=== PATIENT | female | born 1950 | race Caucasian/White ===

== ENCOUNTER 2020-05-26 03:54 | Inpatient (IN) | payer MEDICARE, OTHER ==
[2020-05-26] MEDS ORDERED: Vancomycin 1 GM/200 ML BAG ONE (05:09)
[2020-05-26 05:47] LABS: Actual Bicarbonate (HCO3a) 26.2 mEq/L (22-28); Analyzer IN Cardio ER; Base Excess (BEa) -0.1 mEq/L (-2.0 to +3.0); CO2 Tension 52.7 mmHg (35.0-45.0); Calcium, Ionized (arterial) 1.19 mmol/L (1.12-1.30); Carboxyhemoglobin (COHb) 0.5 gm% (0.0-3.0); Hemoglobin (Hb) 12.2 g/dL (12.0-16.0); O2 Tension (PaO2), arterial 73.7 mmHg (> 70.0); Potassium - ABG Lab 4.14 mmol/L (3.70-5.30); Puncture Site LBR; pH, Arterial 7.32 (7.35-7.45)
[2020-05-26 05:48] LABS: ALV-art Gradient 288.225 (0-20)
[2020-05-26 06:07] LABS: SARS-CoV-2 NAA Rapid Test Not Detected (NotDetected)
[2020-05-26 06:16] LABS: Troponin I 0.055 ng/mL (< 0.028)
--- NOTE | 2020-05-26 06:41 | PDOC.EVN ---
Event Note - Event Note Event Note: [id number] HP
[2020-05-26 07:37] LABS: Troponin I 0.071 ng/mL (< 0.028)
[2020-05-26] MEDS ORDERED: Enoxaparin Sodium 40 MG/0.4 ML SYRINGE SC SCH (09:00)
[2020-05-26] MEDS ORDERED: Dextrose 5% in Water 1,000 ML IV PRN (09:38)
[2020-05-26] MEDS ORDERED: Dextrose 50% Abboject 50 ML SYRINGE SLOW IVP PRN (09:38)
[2020-05-26] MEDS: Furosemide 40 MG/4 ML VIAL SLOW IVP SCH ×2 (10:01→16:04)
--- NOTE | 2020-05-26 10:17 | RAD ---
EXAM: Single view of the chest HISTORY: Respiratory failure COMPARISON: 05/26/2020 at 2:31 AM FINDINGS: Single view of the chest shows an enlarged but stable cardiomediastinal silhouette. The pa cemaker is unchanged in position. There is airspace opacity in the majority of the left lung consistent with left-sided pneumonia. No acute osseous abnormality. IMPRESSION: Left sided pneumonia
[2020-05-26 10:27] LABS: Troponin I 0.069 ng/mL (< 0.028)
--- NOTE | 2020-05-26 10:29 | HP ---
PLEASE DISREGARD THIS H&P, PATIENT APPARENTLY, HAS BEEN ADMITTED BY MILAGRO, DR. CAPPS. PLEASE REFER TO HIS H&P FOR BILLING PURPOSE. CHIEF COMPLAINT: Short of breath. HISTORY OF PRESENT ILLNESS: The patient is a very pleasant 69-year-old female, who has significant past medical history of congestive heart failure, unknown type; histories of atrial fibrillation with status post pacemaker placement; the patient received all her cardiac care in [facility], diabetes, hypothyroidism, hypertension, morbid obesity, who presented to the ER from outside facility with complaint of short of breath x2 days. The patient reports that she has been taking her Lasix 40 mg daily and also weigh herself every day. She noticed about a couple of pounds above her baseline. She normally weigh about 349. Despite adherence to her regimen, her dyspnea progressively worsens. She denies any chest pain. Given her worsening respiratory status, EMS was called. She was brought to [place] ER, where she was found in respiratory failure. Chest x-ray reported that the patient had diffuse infiltrate. She was started on IV Lasix, empiric antibiotics. Initially, the plan was to transfer her to [facility], where she got most of her care. However, given her respiratory status and the distance, the patient was subsequently transferred to [place] for further management. Upon arrival , her vital signs appeared to be stable. Her short of breath much improved. She currently is tolerating nasal cannula. She is saturating in the low 90s on 3 L. She denies any chest pain. No fevers. No chills. No recent travel history. No COVID exposure. PAST MEDICAL HISTORY: 1. Congestive heart failure, unknown type. 2. Atrial fib, on Eliquis for stroke prophylaxis, and also pacemaker placement about 3 years ago. 3. Diabetes. 4. Hypothyroidism. 5. Hypertension. 6. Dyslipidemia. 7. Morbid obesity. PAST SURGICAL HISTORY: 1. Tonsillectomy. 2. Pacemaker placement. 3. Cholecystectomy. FAMILY HISTORY: The patient denies any family history of CAD. REVIEW OF SYSTEMS: Complete review of systems has been assessed and discussed with the patient. Negative and positive pertinent symptoms noted in HPI. Otherwise, complete review negative. SOCIAL HISTORY: The patient lives with her . She denies any smoking. No history of alcohol or recreational drug use. I have personally reviewed external medical record. Unfortunately, her lab is not available to review at this time. PHYSICAL EXAMINATION: VITAL SIGNS: Temperature 98.1, blood pressure is 178/81. Weight is 359. GENERAL APPEARANCE: The patient is alert and oriented x3 with normal affect. She is not in acute distress. HEENT: Normocephalic, atraumatic. Mucous membranes moist. NECK: Supple. No lymphadenopathy. CARDIOVASCULAR: Regular rate and rhythm. No murmur. PULMONOLOGY: Bilateral crackles, bibasilar. ABDOMEN: Obese. Normal bowel sounds. Nontender, nondistended. EXTREMITIES: 1+ edema bilaterally. NEUROLOGIC: Cranial 2 through 12 grossly intact. No focal weakness. : The patient had a Saavedra in situ. PSYCHIATRIC: The patient is alert and oriented x3 with normal affect. ALLERGIES: INCLUDING WELLBUTRIN, IODINE WITH CONTRAST, STRAWBERRY, SULFA. HOME MEDICATIONS: Per patient, she reports that she is takin. Levothyroxine 150 mcg daily. 2. Multivitamin supplement. 3. Lasix 40 mg p.o. daily. 4. Eliquis 5 mg b.i.d. 5. Coreg 3.125. The patient reports that she takes 1 tablet twice daily. 6. Norvasc 5 mg p.o. daily. 7. Lipitor 80 mg p.o. daily. 8. Lantus 10 units b.i.d. 9. Calcium with vitamin D supplement. ASSESSMENT AND PLAN: This is a pleasant 69-year-old female, who has significant past medical history of congestive heart failure, atrial fib on Eliquis for stroke prophylaxis, status post pacemaker placement, hypertension, dyslipidemia, morbid obesity, hypothyroidism, who was transferred from outside facilities for acute respiratory failure secondary to volume overload, congestive heart failure with exacerbation. 1. Acute on chronic heart failure, unknown type. The patient had a Saavedra placed. We will continue with IV diuresis, monitor renal function. We will check a 2D echo to assess LV function. We will continue serial enzymes. Repeat chest x-ray. Obtain BNP. Monitor I and O and daily weight. 2. Acute hypoxic respiratory failure. The patient at this point has been weaned off BiPAP and tolerating nasal cannula. Secondary to above, we will continue to wean O2 as tolerated. P.r.n. neb treatment. We will continue with empiric antibiotics for the time being. However, I suspect this is likely secondary to volume overload rather than infectious etiology. 3. Hypertension. Blood pressure is elevated. We will reconcile her medication and resume her home med. 4. Atrial fib, status post pacemaker placement. The patient is on home Eliquis for stroke prophylaxis. 5. Diabetes type 2, insulin dependent. The patient reports that she is taking Lantus 10 units b.i.d. We will start her on insulin sliding scale for now, would obtain an A1c. Monitor blood glucose and adjust accordingly. 6. Dyslipidemia, we will resume her statin therapy after reconciled. 7. Morbid obesity with BMI of 58. Aggressive risk factor management is recommended. 8. Hypothyroidism. We will resume her levothyroxine. Check TSH level in a.m. 9. DVT prophylaxis. The patient is on Eliquis. 10. GI prophylaxis, not indicated. CODE STATUS: I have discussed the code status with the patient as well as confirmed with her daughter, Anne Marie, the patient is DNR per her request. Thank you for allowing us to participate in this patient's care. PLEASE DISREGARD THIS H&P, PATIENT APPARENTLY, HAS BEEN ADMITTED BY MILAGRO, DR. CAPPS. PLEASE REFER TO HIS H&P FOR BILLING PURPOSE. Job ID: [id number] MTDD
--- NOTE | 2020-05-26 11:13 | HP ---
CHIEF COMPLAINT: Shortness of breath. HISTORY OF PRESENT ILLNESS: Ms. Morgan is a 69-year-old female who has past medical history of congestive heart failure and obesity, was brought to our facility as a transfer from an outside ER. The patient was reportedly being taken by EMS to [facility], where she receives most of her care. She was being taken there due to shortness of breath. The patient had extreme respiratory distress and decreased mental status, EMS diverted to [place]. The patient was placed on CPAP. The patient's blood pressure was elevated with a systolic more than 200. The patient was started on IV nitroglycerin drip. The patient also was given IV Lasix. Her ED physician discussed patient care with the family, who asked that the patient does not want to be intubated. No CPR. The patient subsequently became more comfortable on CPAP. The patient is transferred here for further care. She is more awake, alert, able to answer simple questions. Her nitroglycerin drip was stopped because the patient became extremely hypotensive. Currently, the systolic blood pressure in the 120s. Lab work including chest x-ray showed bilateral opacities, more pronounced on the left side. The pulmonary edema/pneumonia cannot be entirely ruled out. The patient had elevated WBC count in the high 20s. The patient was given IV antibiotic. The patient is being admitted to [facility] for further management. PAST MEDICAL HISTORY: 1. Congestive heart failure. 2. Obesity. PAST SURGICAL HISTORY: Unable to obtain. SOCIAL HISTORY: Unable to obtain. FAMILY HISTORY: Unable to obtain. HOME MEDICATIONS: Please see home medication reconciliation form for updated medications. ALLERGIES: UNKNOWN. REVIEW OF SYSTEMS: Unable to obtain due to patient's medical condition. PHYSICAL EXAMINATION: GENERAL: The patient is in moderate respiratory distress on CPAP. The patient is morbidly obese. Awake, easily arousable. Able to answer only simple questions. VITAL SIGNS: Blood pressure is 160/76, pulse is 81, respiratory rate is 28, oxygen saturation is 93% on CPAP, and temperature 98.1. HEAD AND NECK: Normocephalic, atraumatic. NECK: Supple. CHEST: Few bibasilar crackles. HEART: S1, S2. Regular. ABDOMEN: Obese, soft. Bowel sounds present. NEURO: The patient is lethargic but easily arousable. Able to answer simple questions. EXTREMITIES: Positive for edema. No clubbing. No cyanosis. PSYCH: Unable to assess. LABORATORY DATA: Reviewed. ABG currently; pH 7.32, pCO2 of 52, and PO2 of 73. WBC count was 29,000. ASSESSMENT: 1. Acute hypoxic/hypercapnic respiratory failure. 2. Acute pulmonary edema. 3. Pneumonia cannot be ruled out. 4. Obesity. 5. Congestive heart failure. PLAN: 1. Admit to IMCU. 2. Continue with CPAP. 3. IV diuresis. 4. Continue with IV antibiotic for possible pneumonia. 5. The patient is DNR as per ER physician, who discussed with the family, who expressed that the patient does not want to be intubated and no CPR. 6. Reconcile home medications. 7. DVT prophylaxis as appropriate. 8. Expected length of stay, two midnights or more. Job ID: [id number]
--- NOTE | 2020-05-26 13:04 | PQF ---
CLINICAL DOCUMENTATION CLARIFICATION FORM: Dear Dr. Akers Date: 05/26/20 Please exercise your independent, professional judgment in responding to the clarification form. Clinical indicators are provided on the bottom of this form for your review. Please check appropriate box(es): [ x ] Sepsis due to: _possible PNA, workup in progress [ ] Severe sepsis with associated acute organ dysfunction: [ ] Acute Respiratory Failure [ ] Acute Kidney injury w/o ATN [ ] Acute Kidney Injury w ATN [ ] Encephalopathy (metabolic) (septic) [ ] Disseminated Intravascular Coagulopathy (DIC) [ ] Hepatic Failure [ ] Additional/Other: please specify: [ ] Localized infection without sepsis [ ] SIRS due to non-infectious process (please specify etiology) [ ] with organ dysfunction [ ] without organ dysfunction [ ] Other diagnosis [ ] Unable to determine In addition, please specify: Present on Admission (POA): [ x ] Yes [ ] No [ ] Unable to determine For continuity of documentation, please document condition throughout progress notes and discharge summary. Thank You. ER NOTE: "SEVERE SEPSIS" ER NOTE: SATS 80% ON CPAP RR 29 WBC 29 (H&P -LE) RISKS: ACUTE RESPIRATORY FAILURE (ER) BILATERAL OPACITIES, MORE PRONOUNCED ON LEFT SIDE / PNEUMONIA CANNOT BE RULED OUT (H&P) TREATMENT: REC'D CEFEPIME PRIOR TO TRANSFER (ER NOTE) IV VANCOMYCIN (ER-PRESENT) IV CEFEPIME (START 05/26) COVID TESTING 05/26 CDS Signature: Sallie Mendes RN Phone #: [phone] Date: 05/26/20 This is a permanent part of the Medical Record [facility]
--- NOTE | 2020-05-26 13:31 | PQF ---
CLINICAL DOCUMENTATION CLARIFICATION FORM: Dear Dr. Akers Date: 05/26/20 Please exercise your independent, professional judgment in responding to the clarification form. Clinical indicators are provided on the bottom of this form for your review. Please check appropriate box(es): HEART FAILURE TYPE: [ ] Systolic / HFrEF [ ] Diastolic / HFpEF [ ] Combined Systolic / Diastolic [ ] Hypertensive Heart Disease [ ] Other diagnosis [ x] Unable to determine, pending echo In addition, please specify: Present on Admission (POA): [x ] Yes [ ] No [ ] Unable to determine For continuity of documentation, please document condition throughout progress notes and discharge summary. Thank You. H&P ([facility] "ACUTE ON CHRONIC HEART FAILURE, UNKNOWN TYPE" RISKS: H/O CONGESTIVE HEART FAILURE, UNKNOWN TYPE (H&P- [facility]) CHEST XRAY- DIFFUSE INFILTRATES (H&P- LE) ACUTE RESPIRATORY FAILURE (H&P- LE) BNP 05/26: 600.3 ECHO REPORT: "EJECTION FRACTION 45-50%" "LEFT AND RIGHT ATRIUM NORMAL" "MODERATE MITRAL REGURG; APPEARS TO BE " "MILD-MODERATE TRICUSPID REGURGITATION" TREATMENT: IV LASIX (START 05/26) ECHO 05/26 CARDIOLOGY CONSULT 05/26 IMCU MONITORING CDS Signature: Sallie Mendes RN Phone #: [phone] Date: 05/26/20 This is a permanent part of the Medical Record [facility]
--- NOTE | 2020-05-26 13:49 | PQF ---
CLINICAL DOCUMENTATION CLARIFICATION FORM: Dear Dr. Bird Date: 05/30/20 Please exercise your independent, professional judgment in responding to the clarification form. Clinical indicators are provided on the bottom of this form for your review. Please check appropriate box(es) to clarify if the following diagnosis has been ruled in our ruled out: Pneumonia [ x ] Continue to treat [ ] Resolved [ ] Ruled out diagnosis [ ] Improving [ ] Other diagnosis [ ] Unable to determine In addition, please specify: Present on Admission (POA): [ x ] Yes [ ] No [ ] Unable to determine For continuity of documentation, please document condition throughout progress notes and discharge summary. Thank You. H&P: "POSSIBLE PNEUMONIA / CANNOT BE ENTIRELY RULED OUT" RR 28 CHEST XRAY 05/26: "THERE IS AIRSPACE OPACITY IN THE MAJORITY OF THE LEFT LUNG CONSISTENT WITH LEFT-SIDED PNEUMONIA" RISKS: "ACUTE RESPIRATORY FAILURE" (H&D-[id number]) TREATMENT: CPAP (PLACED IN ER) IV VANCOMYCIN (ER-PRESENT) IV CEFEPIME (START 05/26) CDS Signature: Sallie Mendes RN Phone #: [phone] Date: 05/30/20 This is a permanent part of the Medical Record [facility]
[2020-05-26] MEDS: Cefepime 2 GM in Sodium Chloride 0.9% 100 ML IVPB SCH (16:05)
[2020-05-26] MEDS: Ondansetron PF 4 MG/2 ML Vial IVP PRN (20:10)
[2020-05-26] MEDS: Atorvastatin Calcium 40 MG TAB PO SCH (20:42)
[2020-05-26] MEDS: Carvedilol 3.125 MG TAB PO SCH (20:42)
[2020-05-26] MEDS: Apixaban 5 MG TAB PO SCH (20:43)
[2020-05-26] MEDS: Famotidine 20 MG TAB PO SCH (20:43)
[2020-05-26] MEDS: Vancomycin 1 GM in Premix Bag 1 BAG IVPB SCH (20:43)
--- NOTE | 2020-05-26 20:55 | CON ---
DATE OF CONSULTATION: 05/26/2020 HISTORY OF PRESENT ILLNESS: Sanjeev Morgan is a 69-year-old female, who presented this morning with complaints of shortness of breath. She was transferred here from an outside hospital. She was apparently being taken to [facility] and was diverted to [place], who has sent her here instead of going to [place]. She apparently was hypertensive. She subsequently has been admitted. PAST MEDICAL HISTORY: Remarkable for cardiomyopathy. She has never been hospitalized here. FAMILY HISTORY: Negative for lung disease in early age. REVIEW OF SYSTEMS: Otherwise negative. She says she is feeling better. PHYSICAL EXAMINATION: VITAL SIGNS: Heart rate is 60, blood pressure is 120/74, respiratory rates in the 20s, and oximetry is 94 to 95. She is on BiPAP. HEAD AND NECK: Unremarkable. LUNGS: Remarkable for crackles on the left posteriorly. HEART: Regular rhythm. ABDOMEN: Soft and nontender. EXTREMITIES: Without edema. LABORATORY DATA: A pH of 7.32, CO2 of 52, and pO2 of 73 at 5:45 this morning. COVID screen was negative. Electrolytes; sodium 138, potassium 4.3, chloride 101, bicarb 25, BUN 17, and creatinine 1.36. IMPRESSION AND PLAN: Respiratory failure associated with pneumonia. Her radiograph in my opinion is much more consistent with pneumonia than a cardiomyopathy. She has had an echocardiogram today that shows moderate mitral regurgitation with difficult to see aortic valve. Doppler suggestive of aortic stenosis. She appears to be comfortable on BiPAP. Hopefully tomorrow, we can try her off this. A 50-minute consult, 50% of the time spent on the unit coordinating care. Job ID: [id number] [facility]
[2020-05-26] MEDS ORDERED: Non-Formulary Item 1 EACH (Insulin Glargine,Hum.Rec.Anlog [Lantus Solostar] 35 UNITS) SC SCH (21:00)
[2020-05-26] MEDS: Insulin Glargine 35 UNITS in Pre-Filled Syringe 1 EACH SC SCH (21:03)
--- NOTE | 2020-05-26 22:38 | CON ---
DATE OF CONSULTATION: 05/26/2020 INDICATION FOR CONSULTATION: A 69-year-old female with history of atrial fibrillation, pacemaker insertion, acute shortness of breath. HISTORY OF PRESENT ILLNESS: This is a very unfortunate 69-year-old female, who is morbidly obese, has not been seen in this area before. She usually has her followup in [place]. She has had a history of atrial fibrillation about 3 years ago and underwent pacemaker insertion. In the emergency room, EKG did show that she was pacing; however, she is now converted back to sinus rhythm and is not pacing at this time and EKG shows a sinus rhythm. She denies any previous history of having any cardiomyopathy or coronary artery disease that she is aware of. She does not recall that she has had a stress test or a cardiac catheterization, but has had echocardiograms in the past but does not know what her ejection fraction may be. She has not had any overt congestive heart failure symptoms. She cannot stand for long periods of time due to her legs, but she stays at home. She takes care of her grandchildren and great grandchildren. She is able to take care of some things for her house. She cooks, but otherwise is relatively disabled due to her leg pains. At this time, cardiac enzymes show a troponin I of 0.05, increased up to 0.07. Her BNP was 325, which is not significantly elevated for someone with significant congestive heart failure, most likely this is due to the atrial fibrillation, probably have some diastolic dysfunction, but is most likely due to the acute pulmonary problem. She does have a CPAP mask at home due to history of sleep apnea, but she does not wear the mask routinely and also at this time, she had a CPAP mask in the emergency room and when she transferred up here, she was eventually placed on some oxygen, but does have some CO2 retention. The BiPAP was stopped and she was placed on a nasal cannula, however, O2 saturations remain in 88% on 4 L and she has been advised to go back on the CPAP mask. Previously, it was felt that she was a DNR patient; however, the patient says that was not her intention that she only wants to be a DNR. There is no hope that her medical situation can be improved. PAST MEDICAL HISTORY: Significant for some history of atrial fibrillation, possible congestive heart failure, pacemaker insertion, morbid obesity. ALLERGIES: NONE. MEDICATIONS: Her medications at this time include; 1. Vancomycin. 2. Furosemide 40 mg b.i.d. 3. Maxipime. She is on, 1. Lovenox, DVT prophylaxis. 2. Tylenol p.r.n. She is on, 1. [place] one tablet q.4 hours p.r.n. 2. Zofran 4 mg IV q.6 hours. 3. She is on Senokot as needed. 4. She is on insulin sliding scale. 5. She is also on Eliquis 5 mg b.i.d. and famotidine 20 mg b.i.d. REVIEW OF SYSTEMS: HEENT: She denied any HEENT complaints. PULMONARY: She mainly complains of shortness of breath, which she says started just a few days ago. She also had no other significant complaints such as any emphysema or bronchitis or chronic pulmonary disease that she was aware of. She does have a history of sleep apnea, but does not wear her mask. CARDIAC: She denied any cardiac complaints except for the history of atrial fibrillation in the past, for which she has had a pacemaker, but did not have any chest pain. GI: She had no significant GI complaints. : She had no complaints. MUSCULOSKELETAL: She mainly complains of pain in her leg. She does try to elevate them on a daily basis. She does have a history of intertrigo and appears at this time also to have some yeast infections. NEUROLOGIC: No history of seizures or syncope. She does say she is forgetful. PHYSICAL EXAMINATION: GENERAL: Reveals an elderly morbidly obese female, who is in no acute distress at this time. She is a little short of breath and says that she feels somewhat short of breath. VITAL SIGNS: Her temperature is 98.1, heart rate is 60 beats per minute. There is a sinus rhythm at this time. Blood pressure is 175/74. Her O2 saturation was 88%. Respiratory rate is about 18 to 20. HEENT: Unremarkable. Carotid pulses are present. I did not hear any bruits. CHEST: Has wheezing bilaterally. She has decreased breath sounds with rales on the left side. CARDIOVASCULAR: She has a regular rate and rhythm at this time. I do not hear any significant murmurs, heaves, thrills, bruits, or rubs. Heart sounds are somewhat distant. ABDOMEN: Shows morbid obesity. I cannot palpate any masses or tenderness. Bowel sounds are present. EXTREMITIES: Show 1+ lower extremity edema. Pedal pulses are difficult to palpate. I actually cannot palpate pedal pulses. NEUROLOGIC: She appears to be intact. SKIN: Her skin was warm and dry at this time, but does have evidence of a yeast infection on the abdominal wall area and on the lower extremities. LABORATORY DATA: Potassium was 4.3, sodium was 138, BUN was 17, and creatinine 1.36. Blood sugar was 287. Her BNP was 325. Troponin I as noted up to 0.071. Her blood gases show a pH of 7.32, pCO2 was 52.7, and PO2 was 73.7, O2 saturation was 93% on the blood gases. Her WBC was 29.4, hemoglobin 13.7, hematocrit 42.7, and platelet count was 233,000 with 12% bands. Chest x-ray shows a left-sided pneumonia with a pacemaker insertion with 2 leads, one in the atrium and one in the ventricle. EKG at this time on the telemetry shows a normal sinus rhythm. I do not see any acute ST-segment changes. I will repeat this for a 12-lead. IMPRESSION: 1. Morbidly obese female, who has acquired pneumonia, which is a left-sided pneumonia, will need to be treated by antibiotics and oxygen. We will see how she does. 2. Atrial fibrillation history. At this time, she remains in sinus rhythm. We will obtain an echocardiogram for evaluation of the left ventricular systolic function and chamber dimensions. 3. Status post history of pacemaker insertion. She may have had sick sinus syndrome and tachy-kenroy, for which she underwent the pacemaker. We can also have this device interrogated to see how often she has been in atrial fibrillation. It would be advisable to obtain some medical records from [place] to see exactly what her past medical history is. I do not have any indication that she has any coronary artery disease at this time. 4. Morbid obesity. She should be seen by dietitian. Hopefully, we will get some type of dietary consultation to help lose some weight. 5. Assume she has diabetes with elevated blood sugar of 287 and she has been placed on insulin. We will be more than happy to continue to follow the patient with you, and further recommendations will depend on the results of the echocardiogram and any records that may be obtained from [place]. Job ID: [id number] [facility]
[2020-05-27] MEDS: Cefepime 2 GM in Sodium Chloride 0.9% 100 ML IVPB SCH ×2 (03:06→14:10)
[2020-05-27 03:55] LABS: #Eosinphils 0.1 thou/uL (0.0-0.7); #Lymphocytes 1.7 thou/uL (1.20-3.40); #Monocytes 1.1 thou/uL (0.11-0.59); #Neutrophils 8.3 thou/uL (1.40-6.50); %Basophils 0.1 % (0.0-1.0); %Eosinophils 0.9 % (0.0-10.0); %Lymphocytes 14.8 % (21.0-51.0); %Monocytes 9.8 % (0.0-10.0); %Neutrophils 74.4 % (42.0-75.0); Mean Corpuscular HGB CONC 33.9 g/dL (32.0-36.0); Mean Corpuscular Hemoglobin 30.1 pg (27.0-31.0); Mean Platelet Volume 8.2 fL (7.4-10.4); Platelet Count 136 thou/uL (130-400); RBC Distribution Width 16.2 % (11.5-14.5); Red Blood Cell (RBC) Count 3.31 mill/uL (4.20-5.40); White Blood Cell (WBC) Count 11.2 thou/uL (4.8-10.8)
[2020-05-27 04:07] LABS: ALT (SGPT) 11 U/L (8-55); AST (SGOT) 14 U/L (5-34); Albumin 3.1 g/dL (3.4-4.8); Alkaline Phosphatase 110 U/L (40-110); Anion Gap 12 mmol/L (10-20); BUN (Urea Nitrogen) 25 mg/dL (9.8-20.1); Bilirubin, Total 0.7 mg/dL (0.2-1.2); Calc. Creatinine Clearance 83 mL/min (70-130); Calcium 8.5 mg/dL (7.8-10.44); Carbon Dioxide 28 mmol/L (23-31); Chloride 102 mmol/L (98-107); Estimated GFR-MDRD 32; Globulin 2.6 g/dL (2.4-3.5); Glucose 132 mg/dL (83-110); Magnesium 1.9 mg/dL (1.6-2.6); Potassium 4.4 mmol/L (3.5-5.1); Protein, Total 5.7 g/dL (6.0-8.3); Sodium 138 mmol/L (136-145)
[2020-05-27] MEDS: Furosemide 40 MG/4 ML VIAL SLOW IVP SCH (06:18)
[2020-05-27] MEDS: Carvedilol 3.125 MG TAB PO SCH ×2 (09:21→20:35)
[2020-05-27] MEDS: Apixaban 5 MG TAB PO SCH ×2 (09:21→20:36)
[2020-05-27] MEDS: Amiodarone 200 MG TAB PO SCH (09:21)
[2020-05-27] MEDS: Empagliflozin 10 MG TAB PO SCH ×2 (09:22→09:35)
[2020-05-27] MEDS: Famotidine 20 MG TAB PO SCH ×2 (09:22→20:35)
[2020-05-27] MEDS: Vancomycin 1 GM in Premix Bag 1 BAG IVPB SCH ×2 (09:31→20:36)
--- NOTE | 2020-05-27 11:14 | PRG ---
DATE OF SERVICE: 05/27/2020 SUBJECTIVE: This is a 69-year-old female whom I saw yesterday in consultation, who had respiratory failure, also had a history of hypertension, morbid obesity. She was seen by me yesterday after she had had some complaints of some atrial fibrillation I believe in the emergency room. However, she was converted to sinus rhythm. She has atrial pacing and ventricular sensing. She has a right bundle branch block. She also was admitted after she was found to have pneumonia and was hypoxic. At this time, she remains in sinus rhythm. She is feeling much better today. She was on a CPAP mask yesterday or BiPAP, but she did not require any intubation, was initially felt to be a DNR patient, however, the patient rescinded that and said that she has misunderstood what a DNR entailed. She wants to be a full code. She is otherwise relatively active at home, taking care of grandchildren and great grandchildren. She does have some cardiac problems. She is status post pacemaker insertion in the past. She has history of sick sinus syndrome apparently. Yesterday, echocardiogram was performed, which is very difficult to interpret. However, it appears that she does have some degree of aortic valve stenosis. The left ventricular systolic function was mildly compromised, but otherwise appears to be relatively stable. There is no indication that she has any significant congestive heart failure at this time. Otherwise, she seems to be doing better. She is more alert. She is not on any CPAP or BiPAP at this time, and actually is on room air. OBJECTIVE: VITAL SIGNS: Show temperature of 97.2, blood pressure is 126/69, O2 saturations are 93%. Her heart rate is in the 60s and shows atrial pacing with ventricular sensing, sometimes this appears to be just sinus rhythm with right bundle branch block. CHEST: She does have some decreased breath sounds on the right. I do not hear any wheezing today. She also has some decreased breath sounds on the left side with some scattered mild rales, rhonchi, but no significant abnormalities were noted on the examination otherwise. CARDIOVASCULAR: She has a regular rate and rhythm, today she is audible, she has systolic murmur over the aortic area, somewhat difficult to auscultate yesterday due to her tachypnea as well as increased breath sounds, but she does have a systolic murmur over the aortic area, which radiates over the entire precordium. ABDOMEN: She has morbid obesity. EXTREMITIES: Showed no significant clubbing or cyanosis. She has mild lower extremity edema. LABORATORY DATA: Show a WBC of 11.2, hemoglobin was 10, and platelet count was 136,000. Potassium is 4.4, sodium is 138. Her BUN was 25 and creatinine of 1.6. Blood sugar was 132. Her troponin-I actually was trending downward. Her BNP yesterday was 600, which is somewhat elevated, but most likely she has diastolic dysfunction. Her renal function is somewhat worse today than yesterday, actually her creatinine has increased from 1.36 to 1.61. There is no chest x-ray today. Chest x-ray yesterday was very suspicious for a left-sided pneumonia. IMPRESSION: 1. Pneumonia. She will continue on the antibiotics. 2. Probable aortic valve stenosis. We do not know the significance. Does not appear to be critical. She says she has had a murmur for quite some time. 3. Probable diastolic dysfunction, appears to be relatively stable. She has some mild evidence of congestive heart failure, most likely exacerbated by the pneumonia. 4. Morbid obesity. This will have to be dealt with by the Primary Care Service. She should obviously have some type of Dietary consultation. 5. History of atrial fibrillation. However, she remains in sinus rhythm today. 6. Status post pacemaker insertion. She has occasional pacing, but it is atrial pacing and ventricular sensing. 7. Right bundle branch block, which appears to be chronic. 8. Hypercholesterolemia. She will continue on her medications. Her medications consist of Maxipime, she is on vancomycin, amiodarone. We will need to be careful with the vancomycin since her creatinine has slightly increased. She is on amiodarone 200 mg a day, Eliquis 5 mg b.i.d., atorvastatin 80 mg a day, Coreg 3.125 mg b.i.d., diltiazem p.o. 120 mg a day, and continues to maintain sinus rhythm. She is also on Jardiance 10 mg a day; Pepcid; furosemide 20 mg IV, we will switch this over to p.o.; albuterol treatments as well as other p.r.n. medications. We will be happy to continue to follow the patient with you. Job ID: [id number]
[2020-05-27] MEDS: Insulin Regular 300 UNITS/3 ML VIAL SC PRN (11:41)
[2020-05-27] MEDS: Insulin Glargine 35 UNITS in Pre-Filled Syringe 1 EACH SC SCH ×2 (11:43→20:46)
[2020-05-27] MEDS: HYDROcodone/Acetaminophen 5/325 mg Tablet PO PRN (14:02)
[2020-05-27] MEDS: Ondansetron PF 4 MG/2 ML Vial IVP PRN (14:02)
--- NOTE | 2020-05-27 14:26 | PRG ---
DATE OF SERVICE: 05/27/2020 SUBJECTIVE: Ms. Morgan is sitting up in bed, combing hair, in absolutely no distress. OBJECTIVE: VITAL SIGNS: She is afebrile. Heart rate 60, blood pressure 126/69. LUNGS: Clear. HEART: Regular rhythm. ABDOMEN: Soft. EXTREMITIES: Without edema. LABORATORY DATA: White count 11.2, hemoglobin 10, platelets 136. BUN 25, creatinine 1.61. Creatinine was 1.08 in September. IMPRESSION: 1. Pneumonia. 2. Systolic cardiomyopathy. 3. Acute on chronic kidney disease. 4. Hypoalbuminemia. Given her dramatic clinical improvement, I will repeat a radiograph tomorrow. If her radiograph improves dramatically, this would be an argument if this was an atypical presentation from pulmonary edema. She looks good enough to move out of the intermediate care unit. She says she has CPAP at home, but refuses to wear it. There is no reason to continue BiPAP in my opinion given her dramatic clinical improvement. Job ID: [id number]
[2020-05-27] MEDS: Senokot S 8.6-50 MG TAB PO PRN (14:49)
--- NOTE | 2020-05-27 15:45 | PDOC.HOSPP ---
- Subjective Encounter Date: 05/27/20 Encounter Time: 15:40 Subjective: f/u for resp failure likely due to CHF exacerbation now feeling much better and less SOB. Sitting in chair currently on O2 3L/min NC. - Objective Vital Signs & Weight: Vital Signs (12 hours) Temp Pulse Resp BP Pulse Ox 05/27/20 14:40 84 28 H 90 L 05/27/20 11:32 98.2 F 05/27/20 09:22 60 126/69 05/27/20 08:10 97.2 F L 05/27/20 08:00 93 L 05/27/20 06:38 60 05/27/20 04:00 93 L Weight Weight 335 lb 14.4 oz Most Recent Monitor Data Heart Rate from ECG 81 NIBP 115/49 NIBP BP-Mean 71 Respiration from ECG 28 SpO2 91 I&O: 05/26/20 05/27/20 05/28/20 06:59 06:59 06:59 Intake Total 1370 Output Total 1400 Balance -30 Result Diagrams: 05/27/20 03:15 05/27/20 03:15 Additional Labs: Accuchecks 05/27/20 05/27/20 05/26/20 10:41 05:49 19:54 POC Glucose 226 H 133 H 175 H Microbiology 05/26/20 05:38 Central Line - Left Subclavian Vein Blood Culture - Preliminary Specimen has been received and culture in progress. No Growth to date. 05/26/20 05:21 Venous blood - Right Hand Blood Culture - Preliminary Specimen has been received and culture in progress. No Growth to date. Laboratory Tests 05/26/20 05/26/20 05/26/20 02:35 02:40 04:59 Creatinine 1.36 H B-Natriuretic Peptide 325.6 H SARS-CoV-2 Rap RNA(RT-PCR) Not Detected 05/26/20 09:53 Creatinine B-Natriuretic Peptide 600.3 H SARS-CoV-2 Rap RNA(RT-PCR) Radiology Reviewed by me: Yes (Echo - EF 45-50%, , mod MR) EKG Reviewed by me: Yes (Tele - A-pacing, SR) Hospitalist ROS - Medication Medications: Active Medications Generic Name Dose Route Start Last Admin Trade Name Freq PRN Reason Stop Dose Admin Hydrocodone Bitart/Acetaminophen 1 tab 05/26/20 09:37 05/27/20 14:02 [place] 5/325 PO 1 tab Q4H PRN Administration Moderate Pain (4-6) Albuterol/Ipratropium 3 ml 05/26/20 13:00 05/27/20 14:40 Duoneb NEB 3 ml [id number]-MT RICHA Administration Amiodarone HCl 200 mg 05/27/20 09:00 05/27/20 09:21 Cordarone PO 200 mg DAILY RICHA Administration Apixaban 5 mg 05/26/20 21:00 05/27/20 09:21 Eliquis PO 5 mg BID RICHA Administration Atorvastatin Calcium 80 mg 05/26/20 21:00 05/26/20 20:42 Lipitor PO 80 mg HS RICHA Administration Carvedilol 3.125 mg 05/26/20 21:00 05/27/20 09:21 Coreg PO 3.125 mg BID RICHA Administration Diltiazem HCl 120 mg 05/27/20 09:00 05/27/20 09:22 Cardizem Cd PO 120 mg DAILY RICHA Administration Famotidine 20 mg 05/26/20 21:00 05/27/20 09:22 Pepcid PO 20 mg BID RICHA Administration Cefepime HCl 2 gm/ Sodium 100 mls @ 200 mls/hr 05/26/20 15:00 05/27/20 14:10 Chloride IVPB 100 mls 0300,1500 RICHA Administration Vancomycin HCl 1 gm/ Device 200 mls @ 200 mls/hr 05/26/20 21:00 05/27/20 09: 31 IVPB 200 mls Q12HR RICHA Administration Insulin Glargine 35 units/ 0.35 mls @ 0 mls/hr 05/26/20 21:00 05/27/20 11:43 Miscellaneous Medication SC 0.1 mls BID RICHA Administration Insulin Human Regular 0 units 05/26/20 09:38 05/27/20 11:41 Humulin R SC 4 units .MODERATE SLIDING SC PRN Administration Moderate Correctional Scale Miscellaneous Medication 10 mg 05/27/20 09:00 05/27/20 09:35 Jardiance PO Not Given DAILY RICHA Ondansetron HCl 4 mg 05/26/20 09:37 05/27/20 14:02 Zofran IVP 4 mg Q6H PRN Administration Nausea/Vomiting Senna/Docusate Sodium 2 tab 05/26/20 09:37 05/27/20 14:49 Senokot S PO 2 tab BIDPRN PRN Administration Constipation - Exam General Appearance: NAD, awake alert General - other findings: smiling, responsive Eye: PERRL, anicteric sclera ENT: normocephalic atraumatic, no oropharyngeal lesions Neck: supple, symmetric, no JVD, no thyromegaly, no lymphadenopathy Heart: RRR, no gallops, no rubs, normal peripheral pulses Heart - other findings: S1, S2 Respiratory - other findings: diminished in bases, occ crackles Gastrointestinal: soft, non-tender, non-distended, normal bowel sounds Gastrointestinal - other findings: obese Extremities: no cyanosis, no clubbing, 1+ LE edema Skin: normal turgor, no lesions Neurological: cranial nerve grossly intact, no new deficit Musculoskeletal: normal tone, generalized weakness Psychiatric: normal affect, A&O x 3 Hosp A/P (1) Acute on chronic diastolic (congestive) heart failure Code(s): I50.33 - ACUTE ON CHRONIC DIASTOLIC (CONGESTIVE) HEART FAILURE Status : Acute Plan: Continue Lasix IV, serial I/O's, daily weight, EF 45-50% (2) Acute respiratory failure with hypoxia Code(s): J96.01 - ACUTE RESPIRATORY FAILURE WITH HYPOXIA Status: Acute Plan: Improved, O2 supplementation PRN, consider for home O2 (3) Acute kidney injury superimposed on CKD Code(s): N17.9 - ACUTE KIDNEY FAILURE, UNSPECIFIED; N18.9 - CHRONIC KIDNEY DISEASE, UNSPECIFIED Status: Acute Plan: Avoid nephrotoxic meds and limit contrast exposure, serial creatinine (4) Chronic anticoagulation Code(s): Z79.01 - PAID SEARCH ANALYST (CURRENT) USE OF ANTICOAGULANTS Status: Chronic Plan: Continue Eliquis (5) Diabetes mellitus type II, uncontrolled Code(s): E11.65 - TYPE 2 DIABETES MELLITUS WITH HYPERGLYCEMIA Status: Chronic Plan: Serial accuchecks, ISS, may need additional titration of home long-acting insulin - Plan continue antibiotics, PT/OT, healthcare social worker, respiratory therapy, DVT proph w/ SCDs Continue supportive mgmt Continue Lasix IV O2 support, may need home O2 for d/c PT for mobilization Nystatin pwdr BID PRN AM lab: BMP, CBC
[2020-05-27] MEDS: Atorvastatin Calcium 40 MG TAB PO SCH (20:35)
[2020-05-28] MEDS: Cefepime 2 GM in Sodium Chloride 0.9% 100 ML IVPB SCH ×2 (03:34→15:58)
[2020-05-28 03:37] LABS: #Eosinphils 0.2 thou/uL (0.0-0.7); #Lymphocytes 1.5 thou/uL (1.20-3.40); #Monocytes 1.3 thou/uL (0.11-0.59); #Neutrophils 8.9 thou/uL (1.40-6.50); %Basophils 0.3 % (0.0-1.0); %Eosinophils 1.7 % (0.0-10.0); %Lymphocytes 12.6 % (21.0-51.0); %Monocytes 10.8 % (0.0-10.0); %Neutrophils 74.6 % (42.0-75.0); Hemoglobin 9.7 g/dL (12.0-16.0); Mean Corpuscular HGB CONC 33.2 g/dL (32.0-36.0); Mean Corpuscular Hemoglobin 29.6 pg (27.0-31.0); Mean Corpuscular Volume 89.1 fL (78.0-98.0); Mean Platelet Volume 8.5 fL (7.4-10.4); Platelet Count 133 thou/uL (130-400); RBC Distribution Width 16.1 % (11.5-14.5); Red Blood Cell (RBC) Count 3.26 mill/uL (4.20-5.40)
[2020-05-28] MEDS: Nystatin Powder 15 GM BOT TOP PRN (03:44)
[2020-05-28 03:45] LABS: Hemoglobin A1c 5.4 % (4.0-6.0)
[2020-05-28 03:58] LABS: Anion Gap 12 mmol/L (10-20); BUN (Urea Nitrogen) 28 mg/dL (9.8-20.1); Calc. Creatinine Clearance 73 mL/min (70-130); Calcium 8.6 mg/dL (7.8-10.44); Carbon Dioxide 28 mmol/L (23-31); Chloride 99 mmol/L (98-107); Estimated GFR-MDRD 30; Glucose 159 mg/dL (83-110); Potassium 4.4 mmol/L (3.5-5.1); Sodium 135 mmol/L (136-145)
[2020-05-28] MEDS: Insulin Regular 300 UNITS/3 ML VIAL SC PRN ×2 (06:31→17:48)
[2020-05-28] MEDS: Furosemide 40 MG TAB PO SCH (06:31)
[2020-05-28] MEDS: Ondansetron PF 4 MG/2 ML Vial IVP PRN ×2 (07:10→23:11)
[2020-05-28 08:15] LABS: Vancomycin, Trough 21.6 ug/mL
[2020-05-28] MEDS: HYDROcodone/Acetaminophen 5/325 mg Tablet PO PRN (08:56)
[2020-05-28] MEDS: Apixaban 5 MG TAB PO SCH ×2 (08:56→21:07)
[2020-05-28] MEDS: Amiodarone 200 MG TAB PO SCH (08:56)
[2020-05-28] MEDS: Famotidine 20 MG TAB PO SCH ×2 (08:58→21:07)
[2020-05-28] MEDS: Empagliflozin 10 MG TAB PO SCH (08:59)
[2020-05-28] MEDS: Carvedilol 3.125 MG TAB PO SCH ×2 (08:59→21:07)
[2020-05-28] MEDS: Insulin Glargine 35 UNITS in Pre-Filled Syringe 1 EACH SC SCH ×2 (09:00→21:08)
[2020-05-28] MEDS: Vancomycin 1 GM in Premix Bag 1 BAG IVPB SCH (09:01)
--- NOTE | 2020-05-28 10:35 | PRG ---
DATE OF SERVICE: 05/28/2020 SUBJECTIVE: Ms. Morgan would not wear a BiPAP last night when it was recommended because of her sleep apnea. OBJECTIVE: VITAL SIGNS: Blood pressure 134/54, heart rate 60, respiratory rates in the teens. She is afebrile. LUNGS: Clear. HEART: Regular rhythm. ABDOMEN: Soft. EXTREMITIES: Without asymmetry or edema. NEUROLOGIC: Nonfocal. DIAGNOSTIC STUDIES: Chest x-ray is unchanged. IMPRESSION: 1. Left lung infiltrate, most likely secondary to pneumonia. 2. Mild left ventricular systolic dysfunction with moderate mitral regurgitation. 3. Sleep apnea, noncompliant with CPAP that she has at home. PLAN: BiPAP if she will tolerate it. Continue antimicrobial therapy. Continue observation in the intermediate care unit. Job ID: [id number]
--- NOTE | 2020-05-28 11:23 | RAD ---
PORTABLE CHEST 1 VIEW: DATE: 05/28/2020. TIME: 5:11 AM. HISTORY: Pneumonia. COMPARISON: 05/26/2020. FINDINGS/IMPRESSION: The heart size is stable. Left-sided pacing device remains in place. Airspace opacity in the majori ty of the left lung consistent with pneumonia demonstrates minimal improvement. No pneumothoraces or large effusions are seen. POS: OFF
--- NOTE | 2020-05-28 12:10 | PDOC.HOSPP ---
- Subjective Encounter Date: 05/28/20 Encounter Time: 12:10 Subjective: f/u for acute resp failure suspected combination of PNA/CHF exacerbation receiving Cefepime/Vancomycin/Lasix. Overall feels better and currently on O2 @ 4L/min NC. Apparently did not want BiPAP overnight. - Objective Vital Signs & Weight: Vital Signs (12 hours) Temp Pulse Resp BP Pulse Ox 05/28/20 11:31 98.2 F 05/28/20 08:58 60 134/54 L 05/28/20 08:00 82 L 05/28/20 07:30 98.4 F 05/28/20 06:57 92 L 05/28/20 06:55 63 20 92 L 05/28/20 03:39 98.6 F 05/28/20 00:20 62 18 91 L Weight Weight 337 lb 3.2 oz Most Recent Monitor Data Heart Rate from ECG 60 NIBP 130/63 NIBP BP-Mean 85 Respiration from ECG 19 SpO2 94 I&O: 05/27/20 05/28/20 05/29/20 06:59 06:59 06:59 Intake Total 1370 1610 Output Total 1400 2225 Balance -30 -615 Result Diagrams: 05/28/20 03:11 05/28/20 03:12 Additional Labs: Accuchecks 05/28/20 05/28/20 05/27/20 10:53 05:55 20:21 POC Glucose 248 H 166 H 202 H 05/27/20 16:50 POC Glucose 146 H Microbiology 05/26/20 05:38 Central Line - Left Subclavian Vein Blood Culture - Preliminary Specimen has been received and culture in progress. No Growth to date. 05/26/20 05:21 Venous blood - Right Hand Blood Culture - Preliminary Specimen has been received and culture in progress. No Growth to date. Laboratory Tests 05/26/20 05/26/20 05/26/20 02:35 02:40 04:59 Creatinine 1.36 H B-Natriuretic Peptide 325.6 H SARS-CoV-2 Rap RNA(RT-PCR) Not Detected 05/26/20 09:53 Creatinine B-Natriuretic Peptide 600.3 H SARS-CoV-2 Rap RNA(RT-PCR) Radiology Reviewed by me: Yes (PCXR - L hemithorax opacities/infiltrates) EKG Reviewed by me: Yes (Tele - A-pacing, AIVR) Hospitalist ROS - Medication Medications: Active Medications Generic Name Dose Route Start Last Admin Trade Name Freq PRN Reason Stop Dose Admin Hydrocodone Bitart/Acetaminophen 1 tab 05/26/20 09:37 05/28/20 08:56 [place] 5/325 PO 1 tab Q4H PRN Administration Moderate Pain (4-6) Albuterol/Ipratropium 3 ml 05/26/20 13:00 05/28/20 06:55 Duoneb NEB 3 ml [id number] RICHA Administration Amiodarone HCl 200 mg 05/27/20 09:00 05/28/20 08:56 Cordarone PO 200 mg DAILY RICHA Administration Apixaban 5 mg 05/26/20 21:00 05/28/20 08:56 Eliquis PO 5 mg BID RICHA Administration Atorvastatin Calcium 80 mg 05/26/20 21:00 05/27/20 20:35 Lipitor PO 80 mg HS RICHA Administration Carvedilol 3.125 mg 05/26/20 21:00 05/28/20 08:59 Coreg PO 3.125 mg BID RICHA Administration Diltiazem HCl 120 mg 05/27/20 09:00 05/28/20 08:58 Cardizem Cd PO 120 mg DAILY RICHA Administration Famotidine 20 mg 05/26/20 21:00 05/28/20 08:58 Pepcid PO 20 mg BID RICHA Administration Furosemide 40 mg 05/28/20 07:30 05/28/20 06:31 Lasix PO 40 mg DAILY-AC RICHA Administration Cefepime HCl 2 gm/ Sodium 100 mls @ 200 mls/hr 05/26/20 15:00 05/28/20 03:34 Chloride IVPB 100 mls 0300,1500 RICHA Administration Vancomycin HCl 1 gm/ Device 200 mls @ 200 mls/hr 05/26/20 21:00 05/28/20 09: 01 IVPB 200 mls Q12HR RICHA Administration Insulin Glargine 35 units/ 0.35 mls @ 0 mls/hr 05/26/20 21:00 05/28/20 09:00 Miscellaneous Medication SC 0.1 mls BID RICHA Administration Insulin Human Regular 0 units 05/26/20 09:38 05/28/20 06:31 Humulin R SC 2 units .MODERATE SLIDING SC PRN Administration Moderate Correctional Scale Miscellaneous Medication 10 mg 05/27/20 09:00 05/28/20 08:59 Jardiance PO Not Given DAILY RICHA Nystatin 0 gm 05/27/20 15:28 05/28/20 03:44 Mycostatin Powder TOP 1 applic BIDPRN PRN Administration Topical Irritations Ondansetron HCl 4 mg 05/26/20 09:37 05/28/20 07:10 Zofran IVP 4 mg Q6H PRN Administration Nausea/Vomiting Senna/Docusate Sodium 2 tab 05/26/20 09:37 05/27/20 14:49 Senokot S PO 2 tab BIDPRN PRN Administration Constipation - Exam General Appearance: ill appearing General - other findings: lethargic Eye: PERRL, anicteric sclera ENT: normocephalic atraumatic, no oropharyngeal lesions Neck: supple, symmetric, no JVD, no thyromegaly, no lymphadenopathy Heart: RRR, no gallops, no rubs, normal peripheral pulses Heart - other findings: S1, S2 Respiratory - other findings: diminished bilat, occ rhonchi Gastrointestinal: soft, non-tender, non-distended, normal bowel sounds Gastrointestinal - other findings: obese Extremities: no cyanosis, no clubbing, 1+ LE edema Skin: normal turgor, no lesions Neurological: cranial nerve grossly intact, no new deficit Musculoskeletal: normal tone, generalized weakness Psychiatric: normal affect, A&O x 3 Hosp A/P (1) Acute on chronic diastolic (congestive) heart failure Code(s): I50.33 - ACUTE ON CHRONIC DIASTOLIC (CONGESTIVE) HEART FAILURE Status : Acute Plan: EF 45-50%, continue medical mgmt, hold Lasix due to RODRIGO, monitor daily weight, I /O's (2) Acute respiratory failure with hypoxia Code(s): J96.01 - ACUTE RESPIRATORY FAILURE WITH HYPOXIA Status: Acute Plan: Continue O2 supplementation, may need home O2, titrate current O2 to clinical effect (3) Bacterial pneumonia Code(s): J15.9 - UNSPECIFIED BACTERIAL PNEUMONIA Status: Acute Plan: Suspected Gm + cocci, continue Cefepime/Vancomycin/Duonebs (4) Acute kidney injury superimposed on CKD Code(s): N17.9 - ACUTE KIDNEY FAILURE, UNSPECIFIED; N18.9 - CHRONIC KIDNEY DISEASE, UNSPECIFIED Status: Acute Plan: Avoid nephrotoxic meds, limit contrast exposure, serial creatinine (5) Chronic anticoagulation Code(s): Z79.01 - [facility]FP (CURRENT) USE OF ANTICOAGULANTS Status: Chronic Plan: Continue Eliquis (6) Diabetes mellitus type II, uncontrolled Code(s): E11.65 - TYPE 2 DIABETES MELLITUS WITH HYPERGLYCEMIA Status: Chronic Plan: ISS, ADA - Plan plan discussed w/ family, continue antibiotics, PT/OT, social work lecturer, respiratory therapy, out of bed/ambulate, DVT proph w/SCDs Continue supportive mgmt Hold Lasix due to RODRIGO Change Vancomycin 1gm IV daily O2 support, may need home O2 for d/c PT for mobilization Nystatin pwdr BID PRN Continue Cefepime May consider SNF after d/c AM lab: BMP, CBC
[2020-05-28] MEDS: Atorvastatin Calcium 40 MG TAB PO SCH (21:07)
[2020-05-29] MEDS: HYDROcodone/Acetaminophen 5/325 mg Tablet PO PRN (00:23)
[2020-05-29] MEDS: Cefepime 2 GM in Sodium Chloride 0.9% 100 ML IVPB SCH ×2 (03:17→16:20)
[2020-05-29 03:38] LABS: #Eosinphils 0.2 thou/uL (0.0-0.7); #Lymphocytes 1.6 thou/uL (1.20-3.40); #Monocytes 1.3 thou/uL (0.11-0.59); #Neutrophils 10.1 thou/uL (1.40-6.50); %Basophils 0.1 % (0.0-1.0); %Eosinophils 1.5 % (0.0-10.0); %Lymphocytes 11.8 % (21.0-51.0); %Monocytes 10.1 % (0.0-10.0); %Neutrophils 76.6 % (42.0-75.0); Hemoglobin 9.5 g/dL (12.0-16.0); Mean Corpuscular HGB CONC 34.1 g/dL (32.0-36.0); Mean Corpuscular Hemoglobin 29.8 pg (27.0-31.0); Mean Corpuscular Volume 87.6 fL (78.0-98.0); Mean Platelet Volume 8.7 fL (7.4-10.4); Platelet Count 138 thou/uL (130-400); RBC Distribution Width 15.9 % (11.5-14.5); Red Blood Cell (RBC) Count 3.18 mill/uL (4.20-5.40); White Blood Cell (WBC) Count 13.1 thou/uL (4.8-10.8)
[2020-05-29 03:55] LABS: Anion Gap 13 mmol/L (10-20); BUN (Urea Nitrogen) 30 mg/dL (9.8-20.1); Calc. Creatinine Clearance 76 mL/min (70-130); Calcium 8.8 mg/dL (7.8-10.44); Carbon Dioxide 25 mmol/L (23-31); Chloride 97 mmol/L (98-107); Estimated GFR-MDRD 31; Glucose 175 mg/dL (83-110); Potassium 4.3 mmol/L (3.5-5.1); Sodium 131 mmol/L (136-145)
[2020-05-29] MEDS: Insulin Regular 300 UNITS/3 ML VIAL SC PRN (07:14)
[2020-05-29] MEDS: Furosemide 40 MG TAB PO SCH (10:05)
[2020-05-29] MEDS: Apixaban 5 MG TAB PO SCH ×2 (10:06→23:20)
[2020-05-29] MEDS: Carvedilol 3.125 MG TAB PO SCH ×2 (10:06→23:19)
[2020-05-29] MEDS: Amiodarone 200 MG TAB PO SCH (10:06)
[2020-05-29] MEDS: Insulin Glargine 35 UNITS in Pre-Filled Syringe 1 EACH SC SCH (10:07)
[2020-05-29] MEDS: Acetaminophen 325 MG TAB PO PRN (10:07)
[2020-05-29] MEDS: Famotidine 20 MG TAB PO SCH ×2 (10:07→23:20)
[2020-05-29] MEDS: Empagliflozin 10 MG TAB PO SCH (10:07)
[2020-05-29] MEDS: Ondansetron PF 4 MG/2 ML Vial IVP PRN (10:08)
--- NOTE | 2020-05-29 11:12 | PRG ---
DATE OF SERVICE: 05/29/2020 SUBJECTIVE: The patient is still requiring high amounts of oxygen and using BiPAP at night. OBJECTIVE: VITAL SIGNS: Temperature 98.4, pulse 91, blood pressure 130/84. HEENT: Unremarkable. NECK: No JVD. LUNGS: Coarse breath sounds bilaterally. CARDIAC: S1, S2. Regular. ABDOMEN: Soft and nontender. EXTREMITIES: 2+ edema from the knee downward. IMAGING: X-ray from 05/28/2020 showed cardiomegaly and a left-sided pulmonary infiltrate. LABORATORY DATA: White blood cell count 13.1, hematocrit 27.9, and platelet count 138. Sodium 131, potassium 4.3, chloride 97, CO2 of 25, BUN 30, creatinine 1.6, glucose 175. ASSESSMENT: 1. Diastolic heart failure. 2. Fairly extensive chronic kidney disease. 3. Left lung infiltrate. PLAN: Discussed with family at bedside. Apparently, the patient had gained a considerable amount of weight over the last week from fluid ingestion. She has had issues in the past with chronic kidney disease, even to the point where she needed dialysis for short period of time. Family is concerned that she will not get better if her Lasix is held. We will continue to diurese the patient. She is on some antibiotics but nothing has grown from her cultures. We will continue to follow. Job ID: [id number]
--- NOTE | 2020-05-29 11:35 | PDOC.HOSPP ---
- Subjective Encounter Date: 05/29/20 Encounter Time: 11:30 Subjective: f/u PNA/CHF on current Lasix/Cefepime/Vancomycin and O2 @ 4L/min NC. More alert and interactive today. Does not want to wear BiPAP at night. - Objective Vital Signs & Weight: Vital Signs (12 hours) Temp Pulse Resp BP Pulse Ox 05/29/20 10:06 81 115/63 05/29/20 07:36 98.4 F 05/29/20 07:27 82 27 H 94 L 05/29/20 03:52 97.0 F L 05/29/20 02:42 60 05/29/20 01:33 68 29 H 94 L 05/28/20 23:46 97.4 F L Weight Weight 339 lb 8 oz Most Recent Monitor Data Heart Rate from ECG 91 NIBP 133/84 NIBP BP-Mean 100 Respiration from ECG 24 SpO2 88 I&O: 05/28/20 05/29/20 05/30/20 06:59 06:59 06:59 Intake Total 1610 1470 Output Total 2225 1260 Balance -615 210 Result Diagrams: 05/29/20 03:08 05/29/20 03:08 Additional Labs: Accuchecks 05/29/20 05/29/20 05/28/20 10:43 06:33 20:42 POC Glucose 172 H 166 H 187 H 05/28/20 16:17 POC Glucose 181 H Microbiology 05/26/20 05:38 Central Line - Left Subclavian Vein Blood Culture - Preliminary Specimen has been received and culture in progress. No Growth to date. 05/26/20 05:21 Venous blood - Right Hand Blood Culture - Preliminary Specimen has been received and culture in progress. No Growth to date. Laboratory Tests 05/26/20 05/26/20 05/26/20 02:35 02:40 04:59 Creatinine 1.36 H B-Natriuretic Peptide 325.6 H SARS-CoV-2 Rap RNA(RT-PCR) Not Detected 05/26/20 09:53 Creatinine B-Natriuretic Peptide 600.3 H SARS-CoV-2 Rap RNA(RT-PCR) EKG Reviewed by me: Yes (Tele - A-pacing) Hospitalist ROS - Medication Medications: Active Medications Generic Name Dose Route Start Last Admin Trade Name Freq PRN Reason Stop Dose Admin Acetaminophen 650 mg 05/26/20 09:37 05/29/20 10:07 Tylenol PO 650 mg Q4H PRN Administration Headache/Fever/Mild Pain (1-3) Hydrocodone Bitart/Acetaminophen 1 tab 05/26/20 09:37 05/29/20 00:23 [place] 5/325 PO 1 tab Q4H PRN Administration Moderate Pain (4-6) Albuterol/Ipratropium 3 ml 05/26/20 13:00 05/29/20 07:27 Duoneb NEB 3 ml [id number] RICHA Administration Amiodarone HCl 200 mg 05/27/20 09:00 05/29/20 10:06 Cordarone PO 200 mg DAILY RICHA Administration Apixaban 5 mg 05/26/20 21:00 05/29/20 10:06 Eliquis PO 5 mg BID RICHA Administration Atorvastatin Calcium 80 mg 05/26/20 21:00 05/28/20 21:07 Lipitor PO 80 mg HS RICHA Administration Carvedilol 3.125 mg 05/26/20 21:00 05/29/20 10:06 Coreg PO 3.125 mg BID RICHA Administration Diltiazem HCl 120 mg 05/27/20 09:00 05/29/20 10:06 Cardizem Cd PO 120 mg DAILY RICHA Administration Famotidine 20 mg 05/26/20 21:00 05/29/20 10:07 Pepcid PO 20 mg BID RICHA Administration Furosemide 40 mg 05/28/20 07:30 05/29/20 10:05 Lasix PO 40 mg DAILY-AC RICHA Administration Cefepime HCl 2 gm/ Sodium 100 mls @ 200 mls/hr 05/26/20 15:00 05/29/20 03:17 Chloride IVPB 100 mls 0300,1500 RICHA Administration Insulin Glargine 35 units/ 0.35 mls @ 0 mls/hr 05/26/20 21:00 05/29/20 10:07 Miscellaneous Medication SC 0.1 mls BID RICHA Administration Insulin Human Regular 0 units 05/26/20 09:38 05/29/20 07:14 Humulin R SC 2 units .MODERATE SLIDING SC PRN Administration Moderate Correctional Scale Miscellaneous Medication 10 mg 05/27/20 09:00 05/29/20 10:07 Jardiance PO Not Given DAILY RICHA Nystatin 0 gm 05/27/20 15:28 05/28/20 03:44 Mycostatin Powder TOP 1 applic BIDPRN PRN Administration Topical Irritations Ondansetron HCl 4 mg 05/26/20 09:37 05/29/20 10:08 Zofran IVP 4 mg Q6H PRN Administration Nausea/Vomiting Senna/Docusate Sodium 2 tab 05/26/20 09:37 05/27/20 14:49 Senokot S PO 2 tab BIDPRN PRN Administration Constipation - Exam General Appearance: NAD, awake alert Eye: PERRL, anicteric sclera ENT: normocephalic atraumatic, no oropharyngeal lesions Neck: supple, symmetric, no JVD, no thyromegaly, no lymphadenopathy Heart: RRR, no gallops, no rubs, normal peripheral pulses Heart - other findings: S1, S2 distant heart sounds Respiratory: no wheezes, no ronchi, no tachypnea Respiratory - other findings: diminished in bases Gastrointestinal: soft, non-tender, non-distended, normal bowel sounds, no palpable masses Gastrointestinal - other findings: obese Extremities: no cyanosis Extremities - other findings: minimal LE edema Skin: normal turgor Neurological: cranial nerve grossly intact, no new deficit Musculoskeletal: normal tone, generalized weakness Psychiatric: normal affect, A&O x 3 Hosp A/P (1) Acute on chronic diastolic (congestive) heart failure Code(s): I50.33 - ACUTE ON CHRONIC DIASTOLIC (CONGESTIVE) HEART FAILURE Status : Acute Plan: Resume Lasix and monitor I/O's, Daily weight, EF 45-50% (2) Acute respiratory failure with hypoxia Code(s): J96.01 - ACUTE RESPIRATORY FAILURE WITH HYPOXIA Status: Acute Plan: Currently on O2 @ 4L/min PR, may benefit from home O2 (3) Bacterial pneumonia Code(s): J15.9 - UNSPECIFIED BACTERIAL PNEUMONIA Status: Acute Plan: Continue Cefepime/Vancomycin/Duonebs/O2 (4) Acute kidney injury superimposed on CKD Code(s): N17.9 - ACUTE KIDNEY FAILURE, UNSPECIFIED; N18.9 - CHRONIC KIDNEY DISEASE, UNSPECIFIED Status: Acute Plan: Continue close monitoring given resumption of Lasix, serial creatinine monitoring (5) Chronic anticoagulation Code(s): 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 Status: Chronic Plan: Continue Eliquis (6) Diabetes mellitus type II, uncontrolled Code(s): E11.65 - TYPE 2 DIABETES MELLITUS WITH HYPERGLYCEMIA Status: Chronic Plan: Change Glargine 10u BID, ISS, serial accuchecks - Plan plan discussed w/ family, continue antibiotics, PT/OT, forensic social worker, respiratory therapy, DVT proph w/SCDs Continue supportive mgmt Resume Lasix and monitor renal function closely Change Vancomycin 1gm IV daily O2 support, may need home O2 for d/c PT for mobilization Nystatin pwdr BID PRN Continue Cefepime May consider SNF after d/c Code Status: DNAR per daughter/pt AM lab: BMP, CBC
[2020-05-29] MEDS: Vancomycin 1 GM in Premix Bag 1 BAG IVPB SCH (11:37)
[2020-05-29] MEDS ORDERED: Insulin Glargine 10 UNITS in Pre-Filled Syringe 1 EACH SC SCH (12:00)
[2020-05-29] MEDS: Insulin Glargine 10 UNITS in Pre-Filled Syringe 1 EACH SC SCH (21:35)
[2020-05-29] MEDS: Atorvastatin Calcium 40 MG TAB PO SCH (23:19)
[2020-05-30] MEDS: Cefepime 2 GM in Sodium Chloride 0.9% 100 ML IVPB SCH (03:27)
[2020-05-30] MEDS: Ondansetron PF 4 MG/2 ML Vial IVP PRN ×2 (04:17→10:10)
[2020-05-30] MEDS: Nystatin Powder 15 GM BOT TOP PRN (08:00)
[2020-05-30 08:15] LABS: Vancomycin, Trough 20.1 ug/mL
[2020-05-30] MEDS ORDERED: AFRIN NASAL MIST 15 ML BOT NS PRN (09:29)
--- NOTE | 2020-05-30 10:08 | PDOC.HOSPP ---
- Subjective Encounter Date: 05/30/20 Encounter Time: 10:05 Subjective: f/u for CHF/PNA requiring O2 @ 5L/min NC. Nursing reports epistaxis this am after using BiPAP overnight. Direct pressure applied and NC moved to the mouth. Receiving Cefepime/Vancomycin. - Objective Vital Signs & Weight: Vital Signs (12 hours) Temp Pulse Resp Pulse Ox 05/30/20 07:34 97.4 F L 05/30/20 07:31 94 26 H 94 L 05/30/20 04:00 93 L 05/30/20 03:39 97.8 F 05/30/20 02:31 60 05/30/20 00:35 64 26 H 95 05/29/20 23:41 97.8 F Weight Weight 334 lb 8 oz Most Recent Monitor Data Heart Rate from ECG 87 NIBP 102/73 NIBP BP-Mean 82 Respiration from ECG 22 SpO2 92 I&O: 05/29/20 05/30/20 05/31/20 06:59 06:59 06:59 Intake Total 1470 1090 Output Total 1260 1800 Balance 210 -710 Result Diagrams: 05/29/20 03:08 05/29/20 03:08 Additional Labs: Accuchecks 05/30/20 05/29/20 05/29/20 07:02 20:39 17:40 POC Glucose 152 H 164 H 177 H 05/29/20 10:43 POC Glucose 172 H Microbiology 05/26/20 05:38 Central Line - Left Subclavian Vein Blood Culture - Preliminary Specimen has been received and culture in progress. No Growth to date. 05/26/20 05:21 Venous blood - Right Hand Blood Culture - Preliminary Specimen has been received and culture in progress. No Growth to date. Laboratory Tests 05/26/20 05/26/20 05/26/20 02:35 02:40 04:59 Creatinine 1.36 H B-Natriuretic Peptide 325.6 H SARS-CoV-2 Rap RNA(RT-PCR) Not Detected 05/26/20 09:53 Creatinine B-Natriuretic Peptide 600.3 H SARS-CoV-2 Rap RNA(RT-PCR) EKG Reviewed by me: Yes (Tele - A-paced with intermittent SR) Hospitalist ROS - Medication Medications: Active Medications Generic Name Dose Route Start Last Admin Trade Name Freq PRN Reason Stop Dose Admin Acetaminophen 650 mg 05/26/20 09:37 05/29/20 10:07 Tylenol PO 650 mg Q4H PRN Administration Headache/Fever/Mild Pain (1-3) Hydrocodone Bitart/Acetaminophen 1 tab 05/26/20 09:37 05/29/20 00:23 [place] 5/325 PO 1 tab Q4H PRN Administration Moderate Pain (4-6) Albuterol/Ipratropium 3 ml 05/26/20 13:00 05/30/20 07:31 Duoneb NEB 3 ml [id number] RICHA Administration Amiodarone HCl 200 mg 05/27/20 09:00 05/29/20 10:06 Cordarone PO 200 mg DAILY RICHA Administration Apixaban 5 mg 05/26/20 21:00 05/29/20 23:20 Eliquis PO 5 mg BID RICHA Administration Atorvastatin Calcium 80 mg 05/26/20 21:00 05/29/20 23:19 Lipitor PO 80 mg HS RICHA Administration Carvedilol 3.125 mg 05/26/20 21:00 05/29/20 23:19 Coreg PO 3.125 mg BID RICHA Administration Diltiazem HCl 120 mg 05/27/20 09:00 05/29/20 10:06 Cardizem Cd PO 120 mg DAILY RICHA Administration Famotidine 20 mg 05/26/20 21:00 05/29/20 23:20 Pepcid PO 20 mg BID RICHA Administration Furosemide 40 mg 05/28/20 07:30 05/29/20 10:05 Lasix PO 40 mg DAILY-AC RICHA Administration Cefepime HCl 2 gm/ Sodium 100 mls @ 200 mls/hr 05/26/20 15:00 05/30/20 03:27 Chloride IVPB 100 mls 0300,1500 RICHA Administration Vancomycin HCl 1 gm/ Device 200 mls @ 200 mls/hr 05/29/20 09:00 05/29/20 11: 37 IVPB 200 mls Q24H RICHA Administration Insulin Glargine 10 units/ 0.1 mls @ 0.1 mls/hr 05/29/20 21:00 05/29/20 21:35 Miscellaneous Medication SC Not Given BID RICHA Insulin Human Regular 0 units 05/26/20 09:38 05/29/20 07:14 Humulin R SC 2 units .MODERATE SLIDING SC PRN Administration Moderate Correctional Scale Miscellaneous Medication 10 mg 05/27/20 09:00 05/29/20 10:07 Jardiance PO Not Given DAILY RICHA Nystatin 0 gm 05/27/20 15:28 05/28/20 03:44 Mycostatin Powder TOP 1 applic BIDPRN PRN Administration Topical Irritations Ondansetron HCl 4 mg 05/26/20 09:37 05/30/20 04:17 Zofran IVP 4 mg Q6H PRN Administration Nausea/Vomiting Senna/Docusate Sodium 2 tab 05/26/20 09:37 05/27/20 14:49 Senokot S PO 2 tab BIDPRN PRN Administration Constipation - Exam General - other findings: lethargic, mumbles a few words Eye: PERRL, anicteric sclera ENT: normocephalic atraumatic ENT - other findings: R nares with bleeding on the septum Neck: supple, symmetric, no JVD, no thyromegaly Heart: RRR, no gallops, no rubs, normal peripheral pulses, murmur present Heart - other findings: S1, S2 Respiratory: tachypneic Respiratory - other findings: diminished in bases, occ rhonchi Gastrointestinal: soft, non-tender, non-distended, normal bowel sounds, no palpable masses Extremities: no cyanosis, no clubbing Extremities - other findings: minimal LE edema Skin: normal turgor, no lesions Neurological: cranial nerve grossly intact, no new deficit Musculoskeletal: generalized weakness Psychiatric: oriented to person, somnolent, lethargic Hosp A/P (1) Acute on chronic diastolic (congestive) heart failure Code(s): I50.33 - ACUTE ON CHRONIC DIASTOLIC (CONGESTIVE) HEART FAILURE Status : Acute Plan: Continue Lasix 40mg daily, serial I/O's, daily weight, EF 45-50% (2) Acute respiratory failure with hypoxia Code(s): J96.01 - ACUTE RESPIRATORY FAILURE WITH HYPOXIA Status: Acute Plan: BiPAP overnight, will need to continue at home due to hypoxia, continue O2 @ 5L/ min NC (3) Bacterial pneumonia Code(s): J15.9 - UNSPECIFIED BACTERIAL PNEUMONIA Status: Acute Plan: Continue Cefepime/Vancomycin, general pulm support (4) Epistaxis Code(s): R04.0 - EPISTAXIS Status: Acute Plan: Apply direct pressure, Afrin nasal spray TID PRN, limit exposure to nasal cannula, monitor for progression, may need to consider nasal packing if recurs (5) Acute kidney injury superimposed on CKD Code(s): N17.9 - ACUTE KIDNEY FAILURE, UNSPECIFIED; N18.9 - CHRONIC KIDNEY DISEASE, UNSPECIFIED Status: Acute Plan: Stable currently, continue to monitor closely given need for diuretics (6) Chronic anticoagulation Code(s): Z79.01 - ASSISTED (CURRENT) USE OF ANTICOAGULANTS Status: Chronic Plan: Eliquis 5mg BID (7) Diabetes mellitus type II, uncontrolled Code(s): E11.65 - TYPE 2 DIABETES MELLITUS WITH HYPERGLYCEMIA Status: Chronic - Plan continue antibiotics, PT/OT, respiratory therapy, DVT proph w/SCDs Continue supportive mgmt Resume Lasix and monitor renal function closely Change Vancomycin 750mg IV daily O2 support, may need home O2 for d/c PT for mobilization Nystatin pwdr BID PRN Continue Cefepime May consider SNF after d/c Afrin nasal spray TID PRN for epistaxis Code Status: DNAR per daughter/pt AM lab: BMP, CBC
[2020-05-30 10:23] LABS: Hemoglobin 9.3 g/dL (12.0-16.0)
[2020-05-30] MEDS: Vancomycin 1 GM in Premix Bag 1 BAG IVPB SCH (10:23)
[2020-05-30 10:43] LABS: Anion Gap 11 mmol/L (10-20); BUN (Urea Nitrogen) 28 mg/dL (9.8-20.1); Calc. Creatinine Clearance 78 mL/min (70-130); Calcium 8.9 mg/dL (7.8-10.44); Carbon Dioxide 28 mmol/L (23-31); Chloride 100 mmol/L (98-107); Estimated GFR-MDRD 32; Glucose 136 mg/dL (83-110); Potassium 4.1 mmol/L (3.5-5.1); Sodium 135 mmol/L (136-145)
[2020-05-30] MEDS: Furosemide 40 MG TAB PO SCH (11:11)
[2020-05-30] MEDS: Amiodarone 200 MG TAB PO SCH (11:11)
[2020-05-30] MEDS: Carvedilol 3.125 MG TAB PO SCH (11:11)
[2020-05-30] MEDS: Famotidine 20 MG TAB PO SCH ×3 (11:19→21:37)
[2020-05-30] MEDS: Insulin Glargine 10 UNITS in Pre-Filled Syringe 1 EACH SC SCH ×2 (11:19→21:29)
[2020-05-30] MEDS: Apixaban 5 MG TAB PO SCH ×2 (11:19→21:22)
[2020-05-30] MEDS: Empagliflozin 10 MG TAB PO SCH (11:19)
[2020-05-30] MEDS: Vancomycin HCl 750 MG in Sodium Chloride 0.9% 250 ML 250 ML IVPB SCH (12:51)
--- NOTE | 2020-05-30 14:38 | PRG ---
DATE OF SERVICE: 05/30/2020 SUBJECTIVE: Sanjeev Morgan has no new complaints. OBJECTIVE: VITAL SIGNS: Heart rate is 105, respiratory rates in the 20s, oximetry is 93% on a cannula, and blood pressure 144/81. LUNGS: Remarkable for crackles in left base. HEART: Regular rhythm. ABDOMEN: Soft. IMPRESSION: 1. Probable pneumonia, clinically stable. 2. Diastolic heart failure. 3. Chronic kidney disease. PLAN: Continue supportive care. Job ID: [id number]
[2020-05-30] MEDS: Carvedilol 6.25 MG TAB PO SCH ×2 (21:28→21:37)
[2020-05-30] MEDS: Cefdinir 300 MG CAP PO SCH ×2 (21:28→21:37)
[2020-05-30] MEDS: Atorvastatin Calcium 40 MG TAB PO SCH ×2 (21:28→21:37)
[2020-05-31 03:29] LABS: #Eosinphils 0.2 thou/uL (0.0-0.7); #Lymphocytes 1.2 thou/uL (1.20-3.40); #Monocytes 0.9 thou/uL (0.11-0.59); #Neutrophils 5.9 thou/uL (1.40-6.50); %Basophils 0.2 % (0.0-1.0); %Eosinophils 1.9 % (0.0-10.0); %Lymphocytes 15.1 % (21.0-51.0); %Monocytes 10.6 % (0.0-10.0); %Neutrophils 72.1 % (42.0-75.0); Hemoglobin 9.3 g/dL (12.0-16.0); Mean Corpuscular HGB CONC 32.9 g/dL (32.0-36.0); Mean Corpuscular Hemoglobin 28.9 pg (27.0-31.0); Mean Corpuscular Volume 87.7 fL (78.0-98.0); Mean Platelet Volume 8.4 fL (7.4-10.4); Platelet Count 152 thou/uL (130-400); RBC Distribution Width 15.7 % (11.5-14.5); Red Blood Cell (RBC) Count 3.23 mill/uL (4.20-5.40); White Blood Cell (WBC) Count 8.1 thou/uL (4.8-10.8)
[2020-05-31 03:46] LABS: Anion Gap 15 mmol/L (10-20); BUN (Urea Nitrogen) 28 mg/dL (9.8-20.1); Calc. Creatinine Clearance 79 mL/min (70-130); Calcium 8.9 mg/dL (7.8-10.44); Carbon Dioxide 28 mmol/L (23-31); Chloride 99 mmol/L (98-107); Estimated GFR-MDRD 32; Glucose 124 mg/dL (83-110); Potassium 3.7 mmol/L (3.5-5.1); Sodium 138 mmol/L (136-145)
--- NOTE | 2020-05-31 07:38 | RAD ---
Exam: Chest one view HISTORY:Hypoxia Comparison: 05/28/2020 FINDINGS: Cardiac silhouette:Cardiomegaly. Stable left-sided transvenous pacemaker Aorta: Unremarkable Pulmonary vessels: Normal Costophrenic angles: Bandlike opacity in the left hemithorax suggesting a pleural effusion LUNGS: Persistent asymmetric interstitial and alveolar opacification of the left lung. Pneumothorax: None Osseous abnormalities: None IMPRESSION: 1. Cardiomegaly 2. Asymmetric opacification of the left lung parenchyma, unchanged. Correlate for pneumonia.
[2020-05-31] MEDS: Furosemide 40 MG TAB PO SCH (09:31)
[2020-05-31] MEDS: Famotidine 20 MG TAB PO SCH ×2 (09:31→21:23)
[2020-05-31] MEDS: Cefdinir 300 MG CAP PO SCH ×2 (09:31→21:23)
[2020-05-31] MEDS: Carvedilol 6.25 MG TAB PO SCH ×2 (09:34→21:24)
[2020-05-31] MEDS: Insulin Glargine 10 UNITS in Pre-Filled Syringe 1 EACH SC SCH ×2 (09:35→23:30)
[2020-05-31] MEDS: Apixaban 5 MG TAB PO SCH ×2 (09:37→22:09)
[2020-05-31] MEDS: Amiodarone 200 MG TAB PO SCH (09:37)
[2020-05-31] MEDS: Empagliflozin 10 MG TAB PO SCH (10:14)
[2020-05-31] MEDS: Vancomycin HCl 750 MG in Sodium Chloride 0.9% 250 ML 250 ML IVPB SCH (10:21)
--- NOTE | 2020-05-31 10:43 | PDOC.HOSPP ---
- Subjective Encounter Date: 05/31/20 Encounter Time: 10:35 Subjective: f/u for CHF/PNA and hypoxic resp failure. BiPAP provided overnight and pt tolerated well per nursing. Remains on O2 @ 5L/min NC. Pt states she feels good overall. No cough and denies SOB. - Objective Vital Signs & Weight: Vital Signs (12 hours) Temp Pulse Resp BP Pulse Ox 05/31/20 09:34 130/51 L 05/31/20 09:32 66 130/51 L 05/31/20 08:00 97 05/31/20 07:35 97.4 F L 05/31/20 07:30 104 H 24 H 94 L 05/31/20 03:49 97.4 F L 05/31/20 02:17 110 H 05/31/20 00:14 92 18 96 05/30/20 23:41 98.4 F Weight Weight 327 lb 12.8 oz Most Recent Monitor Data Heart Rate from ECG 103 NIBP 126/85 NIBP BP-Mean 98 Respiration from ECG 29 SpO2 91 I&O: 05/30/20 05/31/20 06/01/20 06:59 06:59 06:59 Intake Total 1090 280 Output Total 1800 1800 Balance -710 -1520 Result Diagrams: 05/31/20 02:57 05/31/20 02:57 Additional Labs: Accuchecks 05/31/20 05/30/20 05/30/20 05:50 21:31 17:06 POC Glucose 135 H 145 H 159 H 05/30/20 10:53 POC Glucose 145 H Microbiology 05/26/20 05:38 Central Line - Left Subclavian Vein Blood Culture - Preliminary Specimen has been received and culture in progress. No Growth to date. 05/26/20 05:21 Venous blood - Right Hand Blood Culture - Preliminary Specimen has been received and culture in progress. No Growth to date. Laboratory Tests 05/26/20 05/26/20 05/26/20 02:35 02:40 04:59 Creatinine 1.36 H B-Natriuretic Peptide 325.6 H SARS-CoV-2 Rap RNA(RT-PCR) Not Detected 05/26/20 09:53 Creatinine B-Natriuretic Peptide 600.3 H SARS-CoV-2 Rap RNA(RT-PCR) Radiology Reviewed by me: Yes (PCXR - L hemithorax opacities, unchanged from prior imaging) EKG Reviewed by me: Yes (Tele - intermittent A-pacing, SR) Hospitalist ROS - Medication Medications: Active Medications Generic Name Dose Route Start Last Admin Trade Name Freq PRN Reason Stop Dose Admin Acetaminophen 650 mg 05/26/20 09:37 05/29/20 10:07 Tylenol PO 650 mg Q4H PRN Administration Headache/Fever/Mild Pain (1-3) Hydrocodone Bitart/Acetaminophen 1 tab 05/26/20 09:37 05/29/20 00:23 [place] 5/325 PO 1 tab Q4H PRN Administration Moderate Pain (4-6) Albuterol/Ipratropium 3 ml 05/26/20 13:00 05/31/20 07:30 Duoneb NEB 3 ml [id number] RICHA Administration Amiodarone HCl 200 mg 05/27/20 09:00 05/31/20 09:37 Cordarone PO 200 mg DAILY RICHA Administration Apixaban 5 mg 05/26/20 21:00 05/31/20 09:37 Eliquis PO Not Given BID RICHA Atorvastatin Calcium 80 mg 05/26/20 21:00 05/30/20 21:37 Lipitor PO Not Given HS RICHA Carvedilol 6.25 mg 05/30/20 21:00 05/31/20 09:34 Coreg PO 6.25 mg BID RICHA Administration Cefdinir 300 mg 05/30/20 21:00 05/31/20 09:31 Omnicef PO 300 mg BID RICHA Administration Diltiazem HCl 120 mg 05/27/20 09:00 05/31/20 09:32 Cardizem Cd PO 120 mg DAILY RICHA Administration Famotidine 20 mg 05/26/20 21:00 05/31/20 09:31 Pepcid PO 20 mg BID RICHA Administration Furosemide 40 mg 05/28/20 07:30 05/31/20 09:31 Lasix PO 40 mg DAILY-AC RICHA Administration Insulin Glargine 10 units/ 0.1 mls @ 0.1 mls/hr 05/29/20 21:00 05/31/20 09:35 Miscellaneous Medication SC 0.1 mls BID RICHA Administration Vancomycin HCl 750 mg/ Sodium 250 mls @ 250 mls/hr 05/30/20 11:00 05/31/20 10 :21 Chloride IVPB 250 mls 1100 RICHA Administration Insulin Human Regular 0 units 05/26/20 09:38 05/29/20 07:14 Humulin R SC 2 units .MODERATE SLIDING SC PRN Administration Moderate Correctional Scale Miscellaneous Medication 10 mg 05/27/20 09:00 05/31/20 10:14 Jardiance PO 10 mg DAILY RICHA Administration Nystatin 0 gm 05/27/20 15:28 05/30/20 08:00 Mycostatin Powder TOP 1 applic BIDPRN PRN Administration Topical Irritations Ondansetron HCl 4 mg 05/26/20 09:37 05/30/20 10:10 Zofran IVP 4 mg Q6H PRN Administration Nausea/Vomiting Oxymetazoline HCl 15 ml 05/30/20 09:29 05/30/20 10:00 Afrin Nasal Mist NS 15 ml TID PRN Administration Bleeding Senna/Docusate Sodium 2 tab 05/26/20 09:37 05/27/20 14:49 Senokot S PO 2 tab BIDPRN PRN Administration Constipation - Exam General Appearance: NAD, awake alert General - other findings: smiling, responsive Eye: PERRL, anicteric sclera ENT: normocephalic atraumatic, no oropharyngeal lesions Neck: supple, symmetric, no JVD, no thyromegaly Heart: RRR, no gallops, no rubs, normal peripheral pulses Heart - other findings: S1, S2 Respiratory: no wheezes, tachypneic Respiratory - other findings: diminished in L lung field and bases Gastrointestinal: soft, non-tender, non-distended, normal bowel sounds Gastrointestinal - other findings: obese Extremities: 1+ LE edema Skin: normal turgor, no lesions Neurological: cranial nerve grossly intact, no new deficit Musculoskeletal: normal tone, generalized weakness Psychiatric: normal affect, oriented to person Hosp A/P (1) Acute on chronic diastolic (congestive) heart failure Code(s): I50.33 - ACUTE ON CHRONIC DIASTOLIC (CONGESTIVE) HEART FAILURE Status : Acute Plan: continue Lasix/Coreg, daily weight, I/O's, EF 45-50% (2) Acute respiratory failure with hypoxia Code(s): J96.01 - ACUTE RESPIRATORY FAILURE WITH HYPOXIA Status: Acute Plan: Continue O2 via NC 5L/min, nocturnal BiPAP (3) Bacterial pneumonia Code(s): J15.9 - UNSPECIFIED BACTERIAL PNEUMONIA Status: Acute Plan: Persistent infiltrate of L hemithorax, continue Omnicef/Vancomycin, likely de- escalate coverage in 24h (4) Epistaxis Code(s): R04.0 - EPISTAXIS Status: Acute Plan: No recurrence, monitor closely (5) Acute kidney injury superimposed on CKD Code(s): N17.9 - ACUTE KIDNEY FAILURE, UNSPECIFIED; N18.9 - CHRONIC KIDNEY DISEASE, UNSPECIFIED Status: Acute (6) Chronic anticoagulation Code(s): Z79.01 - DETENTION (CURRENT) USE OF ANTICOAGULANTS Status: Chronic (7) Diabetes mellitus type II, uncontrolled Code(s): E11.65 - TYPE 2 DIABETES MELLITUS WITH HYPERGLYCEMIA Status: Chronic - Plan plan discussed w/ family, continue antibiotics, PT/OT, social media assistant, respiratory therapy, out of bed/ambulate, DVT proph w/SCDs Continue supportive mgmt Resume Lasix and monitor renal function closely Change Vancomycin 750mg IV daily O2 support, may need home O2 for d/c PT for mobilization Nystatin pwdr BID PRN Continue Omnicef/Vancomycin, likely de-escalate coverage in 24h May consider SNF after d/c Afrin nasal spray TID PRN for epistaxis Code Status: DNAR per daughter/pt AM lab: BMP
--- NOTE | 2020-05-31 11:24 | PDOC.CPN ---
- Subjective Date: 05/31/20 Time: 12:00 - Objective Allergies/Adverse Reactions: Allergies Allergy/AdvReac Type Severity Reaction Status Date / Time bupropion [From Wellbutrin] Allergy Verified 05/26/20 07:46 Iodinated Contrast Media Allergy Verified 05/26/20 07:46 strawberry Allergy Verified 05/26/20 07:46 Sulfa (Sulfonamide Allergy Verified 05/26/20 07:46 Antibiotics) Visit Medications: Current Medications Acetaminophen (Tylenol) 650 mg PO Q4H PRN PRN Reason: Headache/Fever/Mild Pain (1-3) Last Admin: 05/29/20 10:07 Dose: 650 mg Hydrocodone Bitart/Acetaminophen ([place] 5/325) 1 tab PO Q4H PRN PRN Reason: Moderate Pain (4-6) Last Admin: 05/29/20 00:23 Dose: 1 tab Albuterol/Ipratropium (Duoneb) 3 ml NEB [id number] Last Admin: 05/31/20 07:30 Dose: 3 ml Amiodarone HCl (Cordarone) 200 mg PO DAILY [facility] Last Admin: 05/31/20 09:37 Dose: 200 mg Apixaban (Eliquis) 5 mg PO BID [facility] Last Admin: 05/31/20 09:37 Dose: Not Given Atorvastatin Calcium (Lipitor) 80 mg PO HS [facility] Last Admin: 05/30/20 21:37 Dose: Not Given Carvedilol (Coreg) 6.25 mg PO BID [facility] Last Admin: 05/31/20 09:34 Dose: 6.25 mg Cefdinir (Omnicef) 300 mg PO BID [facility] Last Admin: 05/31/20 09:31 Dose: 300 mg Dextrose/Water (Dextrose 50%) 25 gm SLOW IVP PRN PRN PRN Reason: Hypoglycemia Diltiazem HCl (Cardizem Cd) 120 mg PO DAILY [facility] Last Admin: 05/31/20 09:32 Dose: 120 mg Famotidine (Pepcid) 20 mg PO BID [facility] Last Admin: 05/31/20 09:31 Dose: 20 mg Furosemide (Lasix) 40 mg PO DAILY-AC [facility] Last Admin: 05/31/20 09:31 Dose: 40 mg Glucagon (Glucagon) 1 mg IM PRN PRN PRN Reason: Hypoglycemia Dextrose/Water (D5w) 1,000 mls @ 0 mls/hr IV .Q0M PRN PRN Reason: Hypoglycemia Insulin Glargine 10 units/ (Miscellaneous Medication) 0.1 mls @ 0.1 mls/hr SC BID RICHA Last Admin: 05/31/20 09:35 Dose: 0.1 mls Vancomycin HCl 750 mg/ Sodium (Chloride) 250 mls @ 250 mls/hr IVPB 1100 RICHA Last Admin: 05/31/20 10:21 Dose: 250 mls Insulin Human Regular (Humulin R) 0 units SC .MODERATE SLIDING SC PRN PRN Reason: Moderate Correctional Scale Last Admin: 05/29/20 07:14 Dose: 2 units Miscellaneous Medication (Jardiance) 10 mg PO DAILY [facility] Last Admin: 05/31/20 10:14 Dose: 10 mg Nystatin (Mycostatin Powder) 0 gm TOP BIDPRN PRN PRN Reason: Topical Irritations Last Admin: 05/30/20 08:00 Dose: 1 applic Ondansetron HCl (Zofran) 4 mg IVP Q6H PRN PRN Reason: Nausea/Vomiting Last Admin: 05/30/20 10:10 Dose: 4 mg Oxymetazoline HCl (Afrin Nasal Mist) 15 ml NS TID PRN PRN Reason: Bleeding Last Admin: 05/30/20 10:00 Dose: 15 ml Senna/Docusate Sodium (Senokot S) 2 tab PO BIDPRN PRN PRN Reason: Constipation Last Admin: 05/27/20 14:49 Dose: 2 tab Vital Signs & Weight: Vital Signs Temp Pulse Resp BP Pulse Ox 05/31/20 09:34 130/51 L 05/31/20 09:32 66 130/51 L 05/31/20 08:00 97 05/31/20 07:35 97.4 F L 05/31/20 07:30 104 H 24 H 94 L 05/31/20 03:49 97.4 F L 05/31/20 02:17 110 H 05/31/20 00:14 92 18 96 05/30/20 23:41 98.4 F Weight 327 lb 12.8 oz - Labs Result Diagrams: 05/31/20 02:57 05/31/20 02:57 Troponin/CKMB Troponin I 0.069 ng/mL (< 0.028) H 05/26/20 09:53 - Assessment/Plan Assessment/Plan: 1. Acute on chronic Diastolic HF - stable with 5L NC; on Lasix, Coreg, 2. PNA - 3. Afib - remain in SR; on Diltiazem, Amiodarone, Eliquis, and Coreg 4. RODRIGO on CKD - unchanged 5. HLD 6. hx of PM 7. DM type 2 - MAR reviewed - Plan plan discussed w/ family, continue antibiotics, PT/OT, social media marketing manager, respiratory therapy, out of bed/ambulate, DVT proph w/SCDs Continue supportive mgmt Resume Lasix and monitor renal function closely Change Vancomycin 750mg IV daily O2 support, may need home O2 for d/c PT for mobilization Nystatin pwdr BID PRN Continue Omnicef/Vancomycin, likely de-escalate coverage in 24h May consider SNF after d/c Afrin nasal spray TID PRN for epistaxis Code Status: DNAR per daughter/pt AM lab: BMP Pt. seen and eval. by me. I agreee with the a/P by the PROFESSIONAL CASTER. Not much overall change, lungs: scattered rales. RRR at this time. Watch renal function with vancomycin. Cardiac status overall stable. gjm
[2020-05-31] MEDS: Insulin Regular 300 UNITS/3 ML VIAL SC PRN ×2 (11:43→17:28)
--- NOTE | 2020-05-31 15:11 | PRG ---
DATE OF SERVICE: 05/31/2020 SUBJECTIVE: Ms. Morgan is clinically unchanged. OBJECTIVE: VITAL SIGNS: Heart rate 60, blood pressure 129/47, respiratory rates in the teens. GENERAL: She is still intermittently wearing BiPAP. HEAD AND NECK: Unchanged. LUNGS: Clear. HEART: Regular rhythm. ABDOMEN: Soft. EXTREMITIES: Without asymmetry or edema. DIAGNOSTIC STUDIES: Chest x-ray still shows left lung infiltrate. IMPRESSION: 1. Pneumonia. 2. History of diastolic heart failure. 3. Chronic kidney disease. 4. Moderate mitral regurgitation. PLAN: Continue with current antimicrobial therapy, BiPAP, and then close observation. Job ID: [id number]
--- NOTE | 2020-05-31 20:13 | EKG ---
Test Reason : Blood Pressure : / mmHG Vent. Rate : 060 BPM Atrial Rate : 060 BPM P-R Int : 254 ms QRS Dur : 156 ms QT Int : 484 ms P-R-T Axes : 028 -39 -16 degrees QTc Int : 484 ms Atrial-paced rhythm with prolonged AV conduction Left axis deviation Right bundle branch block Abnormal ECG No previous ECGs available Confirmed by GRIFFIN ROJAS, DR. Payan ([id number]) on 05/31/2020 8:13:21 PM Referred By: BISHOP Confirmed By:DR. Schuyler MOYA MD
[2020-05-31] MEDS: Atorvastatin Calcium 40 MG TAB PO SCH (21:23)
[2020-06-01 04:08] LABS: Anion Gap 13 mmol/L (10-20); BUN (Urea Nitrogen) 32 mg/dL (9.8-20.1); Calc. Creatinine Clearance 69 mL/min (70-130); Calcium 9.1 mg/dL (7.8-10.44); Carbon Dioxide 27 mmol/L (23-31); Chloride 100 mmol/L (98-107); Estimated GFR-MDRD 28; Glucose 125 mg/dL (83-110); Potassium 3.8 mmol/L (3.5-5.1); Sodium 136 mmol/L (136-145)
[2020-06-01] MEDS: Insulin Glargine 10 UNITS in Pre-Filled Syringe 1 EACH SC SCH ×2 (09:21→21:16)
[2020-06-01 09:23] LABS: Vancomycin, Trough 19.7 ug/mL
[2020-06-01] MEDS: Amiodarone 200 MG TAB PO SCH (09:29)
[2020-06-01] MEDS: Empagliflozin 10 MG TAB PO SCH (09:29)
[2020-06-01] MEDS: Famotidine 20 MG TAB PO SCH ×2 (09:32→19:54)
[2020-06-01] MEDS: Furosemide 40 MG TAB PO SCH (09:32)
[2020-06-01] MEDS: Cefdinir 300 MG CAP PO SCH ×2 (09:32→19:54)
[2020-06-01] MEDS: Apixaban 5 MG TAB PO SCH ×2 (09:32→19:55)
[2020-06-01] MEDS: Carvedilol 6.25 MG TAB PO SCH ×2 (09:39→19:54)
[2020-06-01] MEDS: Vancomycin HCl 750 MG in Sodium Chloride 0.9% 250 ML 250 ML IVPB SCH (11:16)
--- NOTE | 2020-06-01 11:16 | PDOC.HOSPP ---
- Subjective Encounter Date: 06/01/20 Encounter Time: 11:10 Subjective: f/u for CHF/PNA and hypoxia. BiPAP given overnight but nursing reports pt placed in soft restraints to prevent pulling mask off. No new complaints currently. - Objective Vital Signs & Weight: Vital Signs (12 hours) Temp Pulse Resp BP Pulse Ox 06/01/20 09:39 123/74 06/01/20 09:29 85 123/74 06/01/20 07:33 60 06/01/20 07:30 97.0 F L 06/01/20 04:00 97.6 F 06/01/20 02:09 60 06/01/20 00:03 60 24 H 100 06/01/20 00:00 98.1 F Weight Weight 327 lb 12.8 oz Most Recent Monitor Data Heart Rate from ECG 100 NIBP 105/65 NIBP BP-Mean 78 Respiration from ECG 18 SpO2 100 I&O: 05/31/20 06/01/20 06/02/20 06:59 06:59 06:59 Intake Total 280 Output Total 1800 650 Balance -1520 -650 Result Diagrams: 05/31/20 02:57 06/01/20 03:11 Additional Labs: Accuchecks 06/01/20 06/01/20 05/31/20 10:39 05:28 20:47 POC Glucose 213 H 130 H 151 H 05/31/20 16:53 POC Glucose 150 H Microbiology 05/26/20 05:38 Central Line - Left Subclavian Vein Blood Culture - Preliminary Specimen has been received and culture in progress. No Growth to date. 05/26/20 05:21 Venous blood - Right Hand Blood Culture - Preliminary Specimen has been received and culture in progress. No Growth to date. Laboratory Tests 05/26/20 05/26/20 05/26/20 02:35 02:40 04:59 Creatinine 1.36 H B-Natriuretic Peptide 325.6 H Vancomycin Trough SARS-CoV-2 Rap RNA(RT-PCR) Not Detected 05/26/20 06/01/20 09:53 08:49 Creatinine B-Natriuretic Peptide 600.3 H Vancomycin Trough 19.7 SARS-CoV-2 Rap RNA(RT-PCR) Radiology Reviewed by me: Yes (PCXR - left hemithorax opacities, similar to previous images) EKG Reviewed by me: Yes (Tele - intermittent A-pacing, SR) Hospitalist ROS - Medication Medications: Active Medications Generic Name Dose Route Start Last Admin Trade Name Freq PRN Reason Stop Dose Admin Acetaminophen 650 mg 05/26/20 09:37 05/29/20 10:07 Tylenol PO 650 mg Q4H PRN Administration Headache/Fever/Mild Pain (1-3) Hydrocodone Bitart/Acetaminophen 1 tab 05/26/20 09:37 05/29/20 00:23 [place] 5/325 PO 1 tab Q4H PRN Administration Moderate Pain (4-6) Albuterol/Ipratropium 3 ml 05/26/20 13:00 06/01/20 07:32 Duoneb NEB 3 ml [id number] RICHA Administration Amiodarone HCl 200 mg 05/27/20 09:00 06/01/20 09:29 Cordarone PO 200 mg DAILY RICHA Administration Apixaban 5 mg 05/26/20 21:00 06/01/20 09:32 Eliquis PO 5 mg BID RICHA Administration Atorvastatin Calcium 80 mg 05/26/20 21:00 05/31/20 21:23 Lipitor PO 80 mg HS RICHA Administration Carvedilol 6.25 mg 05/30/20 21:00 06/01/20 09:39 Coreg PO 6.25 mg BID RICHA Administration Cefdinir 300 mg 05/30/20 21:00 06/01/20 09:32 Omnicef PO 300 mg BID RICHA Administration Diltiazem HCl 120 mg 05/27/20 09:00 06/01/20 09:29 Cardizem Cd PO 120 mg DAILY RICHA Administration Famotidine 20 mg 05/26/20 21:00 06/01/20 09:32 Pepcid PO 20 mg BID RICHA Administration Furosemide 40 mg 05/28/20 07:30 06/01/20 09:32 Lasix PO 40 mg DAILY-AC RICHA Administration Insulin Glargine 10 units/ 0.1 mls @ 0.1 mls/hr 05/29/20 21:00 06/01/20 09:21 Miscellaneous Medication SC 0.1 mls BID RICHA Administration Vancomycin HCl 750 mg/ Sodium 250 mls @ 250 mls/hr 05/30/20 11:00 05/31/20 10 :21 Chloride IVPB 250 mls 1100 RICHA Administration Insulin Human Regular 0 units 05/26/20 09:38 05/31/20 17:28 Humulin R SC 2 units .MODERATE SLIDING SC PRN Administration Moderate Correctional Scale Miscellaneous Medication 10 mg 05/27/20 09:00 06/01/20 09:29 Jardiance PO 10 mg DAILY RICHA Administration Nystatin 0 gm 05/27/20 15:28 05/30/20 08:00 Mycostatin Powder TOP 1 applic BIDPRN PRN Administration Topical Irritations Ondansetron HCl 4 mg 05/26/20 09:37 05/30/20 10:10 Zofran IVP 4 mg Q6H PRN Administration Nausea/Vomiting Oxymetazoline HCl 15 ml 05/30/20 09:29 05/30/20 10:00 Afrin Nasal Mist NS 15 ml TID PRN Administration Bleeding Senna/Docusate Sodium 2 tab 05/26/20 09:37 05/27/20 14:49 Senokot S PO 2 tab BIDPRN PRN Administration Constipation - Exam General Appearance: NAD, awake alert Eye: PERRL, anicteric sclera ENT: normocephalic atraumatic, no oropharyngeal lesions Neck: supple, symmetric, no JVD, no thyromegaly, no lymphadenopathy Heart: RRR, no gallops, no rubs, normal peripheral pulses Heart - other findings: S1, S2 Respiratory: no tachypnea Respiratory - other findings: diminished in L base Gastrointestinal: soft, non-tender, non-distended, normal bowel sounds, no palpable masses Gastrointestinal - other findings: obese Extremities: no cyanosis, no clubbing, no edema Skin: normal turgor, no lesions Neurological: cranial nerve grossly intact, no new deficit Musculoskeletal: generalized weakness Psychiatric: oriented to person, oriented to place Hosp A/P (1) Acute on chronic diastolic (congestive) heart failure Code(s): I50.33 - ACUTE ON CHRONIC DIASTOLIC (CONGESTIVE) HEART FAILURE Status : Acute Plan: Approx 10-12lb weight loss since admit, continue Lasix 40mg po daily, serial I/O 's, daily weight (2) Acute respiratory failure with hypoxia Code(s): J96.01 - ACUTE RESPIRATORY FAILURE WITH HYPOXIA Status: Acute Plan: Nocturnal BiPAP, O2 @ 5L/min via NC, home O2 coordination (3) Bacterial pneumonia Code(s): J15.9 - UNSPECIFIED BACTERIAL PNEUMONIA Status: Acute Plan: Continue Omnicef/Duonebs/pulmonary support (4) Epistaxis Code(s): R04.0 - EPISTAXIS Status: Acute Plan: Resolved (5) Acute kidney injury superimposed on CKD Code(s): N17.9 - ACUTE KIDNEY FAILURE, UNSPECIFIED; N18.9 - CHRONIC KIDNEY DISEASE, UNSPECIFIED Status: Acute Plan: Monitor renal function closely given terminal carman Lasix (6) Chronic anticoagulation Code(s): Z79.01 - PRISON (CURRENT) USE OF ANTICOAGULANTS Status: Chronic Plan: Continue Eliquis 5mg BID (7) Diabetes mellitus type II, uncontrolled Code(s): E11.65 - TYPE 2 DIABETES MELLITUS WITH HYPERGLYCEMIA Status: Chronic (8) Physical deconditioning Code(s): R53.81 - OTHER MALAISE Status: Chronic Plan: PT for mobilization, likely will need SNF/NH care upon d/c - Plan continue antibiotics, PT/OT, social psychologist, respiratory therapy, DVT proph w/ SCDs Continue supportive mgmt Resume Lasix and monitor renal function closely Change Vancomycin 750mg IV daily, d/c in 24h Home O2 for d/c PT for mobilization Nystatin pwdr BID PRN Continue Omnicef/Vancomycin, likely de-escalate coverage in 24h May consider SNF after d/c Afrin nasal spray TID PRN for epistaxis Code Status: DNAR per daughter/pt AM lab: BMP
[2020-06-01] MEDS: Insulin Regular 300 UNITS/3 ML VIAL SC PRN ×2 (11:17→17:01)
[2020-06-01] MEDS: Nystatin Powder 15 GM BOT TOP PRN (11:23)
--- NOTE | 2020-06-01 12:07 | PDOC.CPN ---
- Subjective Date: 06/01/20 Time: 08:00 Interval history: The pt seen and examined. No overnight events. No cardiac complaints - Objective Allergies/Adverse Reactions: Allergies Allergy/AdvReac Type Severity Reaction Status Date / Time bupropion [From Wellbutrin] Allergy Verified 05/26/20 07:46 Iodinated Contrast Media Allergy Verified 05/26/20 07:46 strawberry Allergy Verified 05/26/20 07:46 Sulfa (Sulfonamide Allergy Verified 05/26/20 07:46 Antibiotics) Visit Medications: Current Medications Acetaminophen (Tylenol) 650 mg PO Q4H PRN PRN Reason: Headache/Fever/Mild Pain (1-3) Last Admin: 05/29/20 10:07 Dose: 650 mg Hydrocodone Bitart/Acetaminophen ([place] 5/325) 1 tab PO Q4H PRN PRN Reason: Moderate Pain (4-6) Last Admin: 05/29/20 00:23 Dose: 1 tab Albuterol/Ipratropium (Duoneb) 3 ml NEB Q2XY-NA [facility] Last Admin: 06/01/20 07:32 Dose: 3 ml Amiodarone HCl (Cordarone) 200 mg PO DAILY [facility] Last Admin: 06/01/20 09:29 Dose: 200 mg Apixaban (Eliquis) 5 mg PO BID [facility] Last Admin: 06/01/20 09:32 Dose: 5 mg Atorvastatin Calcium (Lipitor) 80 mg PO HS [facility] Last Admin: 05/31/20 21:23 Dose: 80 mg Carvedilol (Coreg) 6.25 mg PO BID [facility] Last Admin: 06/01/20 09:39 Dose: 6.25 mg Cefdinir (Omnicef) 300 mg PO BID [facility] Last Admin: 06/01/20 09:32 Dose: 300 mg Dextrose/Water (Dextrose 50%) 25 gm SLOW IVP PRN PRN PRN Reason: Hypoglycemia Diltiazem HCl (Cardizem Cd) 120 mg PO DAILY [facility] Last Admin: 06/01/20 09:29 Dose: 120 mg Famotidine (Pepcid) 20 mg PO BID [facility] Last Admin: 06/01/20 09:32 Dose: 20 mg Furosemide (Lasix) 40 mg PO DAILY-AC [facility] Last Admin: 06/01/20 09:32 Dose: 40 mg Glucagon (Glucagon) 1 mg IM PRN PRN PRN Reason: Hypoglycemia Dextrose/Water (D5w) 1,000 mls @ 0 mls/hr IV .Q0M PRN PRN Reason: Hypoglycemia Insulin Glargine 10 units/ (Miscellaneous Medication) 0.1 mls @ 0.1 mls/hr SC BID RICHA Last Admin: 06/01/20 09:21 Dose: 0.1 mls Vancomycin HCl 750 mg/ Sodium (Chloride) 250 mls @ 250 mls/hr IVPB 1100 [facility] Last Admin: 06/01/20 11:16 Dose: 250 mls Insulin Human Regular (Humulin R) 0 units SC .MODERATE SLIDING SC PRN PRN Reason: Moderate Correctional Scale Last Admin: 06/01/20 11:17 Dose: 4 units Miscellaneous Medication (Jardiance) 10 mg PO DAILY [facility] Last Admin: 06/01/20 09:29 Dose: 10 mg Miscellaneous Medication (Pharmacy To Dose) 1 each IVPB PRN PRN PRN Reason: Pharmacy to dose Nystatin (Mycostatin Powder) 0 gm TOP BIDPRN PRN PRN Reason: Topical Irritations Last Admin: 06/01/20 11:23 Dose: 1 applic Ondansetron HCl (Zofran) 4 mg IVP Q6H PRN PRN Reason: Nausea/Vomiting Last Admin: 05/30/20 10:10 Dose: 4 mg Oxymetazoline HCl (Afrin Nasal Mist) 15 ml NS TID PRN PRN Reason: Bleeding Last Admin: 05/30/20 10:00 Dose: 15 ml Senna/Docusate Sodium (Senokot S) 2 tab PO BIDPRN PRN PRN Reason: Constipation Last Admin: 05/27/20 14:49 Dose: 2 tab Vital Signs & Weight: Vital Signs Temp Pulse BP 06/01/20 11:21 97.2 F L 06/01/20 09:39 123/74 06/01/20 09:29 85 123/74 06/01/20 07:33 60 06/01/20 07:30 97.0 F L 06/01/20 04:00 97.6 F 06/01/20 02:09 60 Weight 327 lb 12.8 oz - Physical Exam General: other (confused) HEENT: mucus membranes moist Neck: supple neck Cardiac: regular rate and rhythm, S1/S2 Lungs: decreased breath sounds Extremities: no edema - Labs Result Diagrams: 05/31/20 02:57 06/01/20 03:11 Troponin/CKMB Troponin I 0.069 ng/mL (< 0.028) H 05/26/20 09:53 - Telemetry Sinus rhythms and dysrhythmias: sinus rhythm - Assessment/Plan Assessment/Plan: 1. Acute on chronic Diastolic HF - stable with 5L NC; on Lasix, Coreg; not on LISA/ARB due to hx of CKD 2. PNA - on ABX IV by PCP 3. Afib - remain in SR; on Diltiazem, Amiodarone, Eliquis, and Coreg 4. RODRIGO on CKD - unchanged 5. HLD 6. hx of PM 7. DM type 2 - 8. Sleep apnea - on Cpap at MAR reviewed * Echo in 05/2020 with EF 45-50%, mod MR, mild-mod TR, and Pt. seen and eval. by me. I agree with the A/P by the CHEMICAL ETCHING PROCESSOR. No significant overall change. She is wearing the CPAP mask. Chest: few rales. RRR, pacing. I am concerned about the increasing creat. and the vancomycin. Consider changing antibiotics or stopping Vancomycin with decreasing renal function. Overall cardiac status is stable. i will sign off. If any cardiac issues please consult me again.
--- NOTE | 2020-06-01 17:39 | PRG ---
DATE OF SERVICE: 06/01/2020 SUBJECTIVE: Still sleeping, on BiPAP on and off. Overall, she says she is feeling better. She is able to eat her meals this morning. We are trying to keep her off BiPAP unless she is sleeping. OBJECTIVE: GENERAL: She is in no distress. CHEST: Remarkable for mild rhonchi. HEART: Regular rhythm. ABDOMEN: Soft, nontender. EXTREMITIES: Remarkable for 1+ edema. LABORATORY DATA: Intake and outputs not recorded today. Yesterday was negative 1520. IMPRESSION AND PLAN: 1. Pneumonia. 2. Deconditioning. 3. Obesity. She is followed at [facility] primarily. She appears to be slowly improving. She will continue in the intermediate care unit for now. Job ID: [id number]
[2020-06-01] MEDS: Atorvastatin Calcium 40 MG TAB PO SCH (19:54)
[2020-06-02 04:17] LABS: Anion Gap 15 mmol/L (10-20); BUN (Urea Nitrogen) 29 mg/dL (9.8-20.1); Calc. Creatinine Clearance 68 mL/min (70-130); Calcium 8.6 mg/dL (7.8-10.44); Carbon Dioxide 25 mmol/L (23-31); Chloride 101 mmol/L (98-107); Estimated GFR-MDRD 28; Glucose 125 mg/dL (83-110); Potassium 3.8 mmol/L (3.5-5.1); Sodium 137 mmol/L (136-145)
--- NOTE | 2020-06-02 09:27 | PRG ---
DATE OF SERVICE: 06/02/2020 SUBJECTIVE: Ms. Morgan has no new problems. OBJECTIVE: VITAL SIGNS: She is afebrile. Oximetry was 98% when she was on BiPAP last night. She is on 3 L cannula off BiPAP. Heart rate 60, blood pressure 124/36. LUNGS: Clear. HEART: Regular rhythm. ABDOMEN: Soft. LABORATORY DATA: Sodium 137, potassium 3.8, chloride 101, bicarb 25, BUN 29, creatinine 1.78. Creatinine was 1.61 on admission. IMPRESSION: 1. Pneumonia. 2. Deconditioning. 3. History of noncompliance with CPAP per her report on admission. She continues to wear BiPAP when she sleeps. 4. Diastolic heart failure. 5. History of atrial fibrillation, in sinus rhythm. 6. [id number] kidney disease. 7. Diabetes. I really do not see any indication for vancomycin. This was started 3 days ago. I have switched her to p.o. antibiotics, but I would suggest discontinue vancomycin. We will see her less frequently. Job ID: [id number]
[2020-06-02] MEDS: Amiodarone 200 MG TAB PO SCH (10:44)
[2020-06-02] MEDS: Carvedilol 6.25 MG TAB PO SCH ×2 (10:44→20:57)
[2020-06-02] MEDS: Insulin Glargine 10 UNITS in Pre-Filled Syringe 1 EACH SC SCH ×2 (10:44→20:57)
[2020-06-02] MEDS: Famotidine 20 MG TAB PO SCH ×2 (10:44→20:54)
[2020-06-02] MEDS: Cefdinir 300 MG CAP PO SCH ×2 (10:44→20:54)
[2020-06-02] MEDS: Empagliflozin 10 MG TAB PO SCH (10:45)
[2020-06-02] MEDS: Apixaban 5 MG TAB PO SCH ×2 (10:45→20:57)
[2020-06-02] MEDS: Furosemide 40 MG TAB PO SCH (10:45)
[2020-06-02] MEDS: Vancomycin HCl 750 MG in Sodium Chloride 0.9% 250 ML 250 ML IVPB SCH (14:08)
--- NOTE | 2020-06-02 15:44 | PDOC.HOSPP ---
- Subjective Encounter Date: 06/02/20 Encounter Time: 15:10 Subjective: f/u for CHF/PNA/Hypoxia on nocturnal BiPAP with current O2 @ 3L/min NC. Feels much better today, more alert, less confusion, sat in chair and tolerated diet. - Objective Vital Signs & Weight: Vital Signs (12 hours) Temp Pulse Pulse Pulse Resp BP BP 06/02/20 15:30 98.2 F 06/02/20 12:59 60 20 06/02/20 11:39 97.1 F L 06/02/20 11:22 60 60 122/56 L 06/02/20 10:45 60 06/02/20 10:44 123/74 06/02/20 07:45 06/02/20 07:33 97.4 F L 06/02/20 07:16 60 22 H BP Pulse Ox Pulse Ox Pulse Ox 06/02/20 15:30 06/02/20 12:59 06/02/20 11:39 06/02/20 11:22 113/50 L 99 94 L 06/02/20 10:45 06/02/20 10:44 06/02/20 07:45 98 06/02/20 07:33 06/02/20 07:16 Weight Admit Weight 327 lb Weight 330 lb 12.8 oz Most Recent Monitor Data Heart Rate from ECG 60 NIBP 125/57 NIBP BP-Mean 79 Respiration from ECG 15 SpO2 91 I&O: 06/01/20 06/02/20 06/03/20 06:59 06:59 06:59 Intake Total 870 Output Total 2455 Balance -1585 Result Diagrams: 05/31/20 02:57 06/02/20 03:06 Additional Labs: Accuchecks 06/02/20 06/02/20 06/01/20 10:51 05:43 20:41 POC Glucose 204 H 137 H 193 H 06/01/20 16:36 POC Glucose 150 H Microbiology 05/26/20 05:38 Central Line - Left Subclavian Vein Blood Culture - Preliminary Specimen has been received and culture in progress. No Growth to date. 05/26/20 05:21 Venous blood - Right Hand Blood Culture - Preliminary Specimen has been received and culture in progress. No Growth to date. Laboratory Tests 09/04/20 09/04/20 09/04/20 02:35 02:40 04:59 Creatinine 1.36 H B-Natriuretic Peptide 325.6 H Vancomycin Trough SARS-CoV-2 Rap RNA(RT-PCR) Not Detected 05/26/20 06/01/20 09:53 08:49 Creatinine B-Natriuretic Peptide 600.3 H Vancomycin Trough 19.7 SARS-CoV-2 Rap RNA(RT-PCR) EKG Reviewed by me: Yes (Tele - SR) Hospitalist ROS - Medication Medications: Active Medications Generic Name Dose Route Start Last Admin Trade Name Freq PRN Reason Stop Dose Admin Acetaminophen 650 mg 05/26/20 09:37 05/29/20 10:07 Tylenol PO 650 mg Q4H PRN Administration Headache/Fever/Mild Pain (1-3) Hydrocodone Bitart/Acetaminophen 1 tab 05/26/20 09:37 05/29/20 00:23 [place] 5/325 PO 1 tab Q4H PRN Administration Moderate Pain (4-6) Albuterol/Ipratropium 3 ml 05/26/20 13:00 06/02/20 12:59 Duoneb NEB 3 ml [id number] RICHA Administration Amiodarone HCl 200 mg 05/27/20 09:00 06/02/20 10:44 Cordarone PO 200 mg DAILY RICHA Administration Apixaban 5 mg 05/26/20 21:00 06/02/20 10:45 Eliquis PO 5 mg BID RICHA Administration Atorvastatin Calcium 80 mg 05/26/20 21:00 06/01/20 19:54 Lipitor PO 80 mg HS RICHA Administration Carvedilol 6.25 mg 05/30/20 21:00 06/02/20 10:44 Coreg PO 6.25 mg BID RICHA Administration Cefdinir 300 mg 05/30/20 21:00 06/02/20 10:44 Omnicef PO 300 mg BID RICHA Administration Diltiazem HCl 120 mg 05/27/20 09:00 06/02/20 10:45 Cardizem Cd PO 120 mg DAILY RICHA Administration Famotidine 20 mg 05/26/20 21:00 06/02/20 10:44 Pepcid PO 20 mg BID RICHA Administration Furosemide 40 mg 05/28/20 07:30 06/02/20 10:45 Lasix PO 40 mg DAILY-AC RICHA Administration Insulin Glargine 10 units/ 0.1 mls @ 0.1 mls/hr 05/29/20 21:00 06/02/20 10:44 Miscellaneous Medication SC 0.1 mls BID RICHA Administration Insulin Human Regular 0 units 05/26/20 09:38 06/01/20 17:01 Humulin R SC 2 units .MODERATE SLIDING SC PRN Administration Moderate Correctional Scale Miscellaneous Medication 10 mg 05/27/20 09:00 06/02/20 10:45 Jardiance PO 10 mg DAILY RICHA Administration Nystatin 0 gm 05/27/20 15:28 06/01/20 11:23 Mycostatin Powder TOP 1 applic BIDPRN PRN Administration Topical Irritations Ondansetron HCl 4 mg 05/26/20 09:37 05/30/20 10:10 Zofran IVP 4 mg Q6H PRN Administration Nausea/Vomiting Oxymetazoline HCl 15 ml 05/30/20 09:29 05/30/20 10:00 Afrin Nasal Mist NS 15 ml TID PRN Administration Bleeding Senna/Docusate Sodium 2 tab 05/26/20 09:37 05/27/20 14:49 Senokot S PO 2 tab BIDPRN PRN Administration Constipation - Exam General Appearance: NAD, awake alert General - other findings: smiling, responsive Eye: PERRL, anicteric sclera ENT: normocephalic atraumatic, no oropharyngeal lesions Neck: supple, symmetric, no JVD, no thyromegaly, no lymphadenopathy Heart: RRR, no gallops, no rubs, normal peripheral pulses Heart - other findings: S1, S2 Respiratory: no wheezes, no ronchi, no tachypnea Respiratory - other findings: diminished in bases Gastrointestinal: soft, non-tender, non-distended, normal bowel sounds, no palpable masses Gastrointestinal - other findings: obese Extremities: no cyanosis, no clubbing, no edema Skin: normal turgor, no lesions Neurological: cranial nerve grossly intact, no new deficit Musculoskeletal: generalized weakness Psychiatric: oriented to person, oriented to place Hosp A/P (1) Acute on chronic diastolic (congestive) heart failure Code(s): I50.33 - ACUTE ON CHRONIC DIASTOLIC (CONGESTIVE) HEART FAILURE Status : Acute Plan: Stable currently, continue Lasix, monitor daily weight, I/O's (2) Acute respiratory failure with hypoxia Code(s): J96.01 - ACUTE RESPIRATORY FAILURE WITH HYPOXIA Status: Acute Plan: Continue Nocturnal BiPAP, likely will need O2 for home (3) Bacterial pneumonia Code(s): J15.9 - UNSPECIFIED BACTERIAL PNEUMONIA Status: Acute Plan: Continue Omnicef, pulmonary support (4) Epistaxis Code(s): R04.0 - EPISTAXIS Status: Acute (5) Acute kidney injury superimposed on CKD Code(s): N17.9 - ACUTE KIDNEY FAILURE, UNSPECIFIED; N18.9 - CHRONIC KIDNEY DISEASE, UNSPECIFIED Status: Acute (6) Chronic anticoagulation Code(s): Z79.01 - HALF-WAY (CURRENT) USE OF ANTICOAGULANTS Status: Chronic (7) Diabetes mellitus type II, uncontrolled Code(s): E11.65 - TYPE 2 DIABETES MELLITUS WITH HYPERGLYCEMIA Status: Chronic (8) Physical deconditioning Code(s): R53.81 - OTHER MALAISE Status: Chronic Plan: SNF options pending - Plan plan discussed w/ family, continue antibiotics, PT/OT, outreach and education social worker, respiratory therapy, out of bed/ambulate, DVT proph w/SCDs Continue supportive mgmt Resume Lasix and monitor renal function closely D/C Vancomycin Home O2 for d/c PT for mobilization Nystatin pwdr BID PRN Continue Omnicef May consider SNF after d/c Afrin nasal spray TID PRN for epistaxis Code Status: DNAR per daughter/pt
[2020-06-02] MEDS: Atorvastatin Calcium 40 MG TAB PO SCH (20:54)
[2020-06-03] MEDS: Furosemide 40 MG TAB PO SCH (06:48)
[2020-06-03] MEDS: Amiodarone 200 MG TAB PO SCH (08:32)
[2020-06-03] MEDS: Apixaban 5 MG TAB PO SCH ×2 (08:32→20:50)
[2020-06-03] MEDS: Famotidine 20 MG TAB PO SCH ×2 (08:33→20:51)
[2020-06-03] MEDS: Empagliflozin 10 MG TAB PO SCH (08:33)
[2020-06-03] MEDS: Cefdinir 300 MG CAP PO SCH ×2 (08:33→20:52)
[2020-06-03] MEDS: Carvedilol 6.25 MG TAB PO SCH ×2 (08:33→20:52)
[2020-06-03] MEDS: Insulin Glargine 10 UNITS in Pre-Filled Syringe 1 EACH SC SCH ×2 (08:34→20:50)
[2020-06-03] MEDS: Insulin Regular 300 UNITS/3 ML VIAL SC PRN ×2 (10:29→17:06)
--- NOTE | 2020-06-03 11:38 | PRG ---
DATE OF SERVICE: 06/03/2020 SUBJECTIVE: The patient is doing relatively well, had no acute complaints. OBJECTIVE: VITAL SIGNS: Temperature 97.6, pulse , blood pressure 103/57. HEENT: Unremarkable. NECK: No JVD. LUNGS: Clear without wheezing. CARDIAC: S1 and S2. Regular. ABDOMEN: Soft. EXTREMITIES: No edema. ASSESSMENT: 1. Pneumonia. 2. Deconditioning. 3. Obstructive sleep apnea, noncompliant with continuous positive airway pressure therapy. 4. Diastolic heart failure. PLAN: She is stable for transfer to the regular floor. Probably at her baseline and can be discharged home soon. No further pulmonary recommendations. Job ID: [id number]
--- NOTE | 2020-06-03 12:17 | PDOC.HOSPP ---
- Subjective Encounter Date: 06/03/20 Encounter Time: 12:14 Subjective: Ms. Morgan was seen today in follow-up of respiratory failure due to CHF and pneumonia. She says she is breathing better. She feels weak, otherwise no new complaints. - Objective Vital Signs & Weight: Vital Signs (12 hours) Temp Pulse Resp BP Pulse Ox 06/03/20 11:57 97.8 F 06/03/20 11:53 101 H 18 99 06/03/20 08:33 115/60 06/03/20 08:32 96 115/60 06/03/20 08:00 98 06/03/20 07:19 97.6 F 06/03/20 05:08 99 17 97 06/03/20 03:41 97.2 F L Weight Admit Weight 327 lb Weight 330 lb 6.4 oz Most Recent Monitor Data Heart Rate from ECG 99 NIBP 134/61 NIBP BP-Mean 85 Respiration from ECG 17 SpO2 96 I&O: 06/02/20 06/03/20 06/04/20 06:59 06:59 06:59 Intake Total 870 500 Output Total 2455 1850 Balance -1585 -1350 Result Diagrams: 05/31/20 02:57 06/02/20 03:06 Additional Labs: Accuchecks 06/03/20 06/02/20 06/02/20 05:45 20:29 16:56 POC Glucose 128 H 173 H 173 H Hospitalist ROS - Medication Medications: Active Medications Generic Name Dose Route Start Last Admin Trade Name Freq PRN Reason Stop Dose Admin Acetaminophen 650 mg 05/26/20 09:37 05/29/20 10:07 Tylenol PO 650 mg Q4H PRN Administration Headache/Fever/Mild Pain (1-3) Hydrocodone Bitart/Acetaminophen 1 tab 05/26/20 09:37 05/29/20 00:23 [place] 5/325 PO 1 tab Q4H PRN Administration Moderate Pain (4-6) Albuterol/Ipratropium 3 ml 05/26/20 13:00 06/03/20 11:53 Duoneb NEB 3 ml [id number] RICHA Administration Amiodarone HCl 200 mg 05/27/20 09:00 06/03/20 08:32 Cordarone PO 200 mg DAILY RICHA Administration Apixaban 5 mg 05/26/20 21:00 06/03/20 08:32 Eliquis PO 5 mg BID RICHA Administration Atorvastatin Calcium 80 mg 05/26/20 21:00 06/02/20 20:54 Lipitor PO 80 mg HS RICHA Administration Carvedilol 6.25 mg 05/30/20 21:00 06/03/20 08:33 Coreg PO 6.25 mg BID RICHA Administration Cefdinir 300 mg 05/30/20 21:00 06/03/20 08:33 Omnicef PO 300 mg BID RICHA Administration Diltiazem HCl 120 mg 05/27/20 09:00 06/03/20 08:32 Cardizem Cd PO 120 mg DAILY RICHA Administration Famotidine 20 mg 05/26/20 21:00 06/03/20 08:33 Pepcid PO 20 mg BID RICHA Administration Furosemide 40 mg 05/28/20 07:30 06/03/20 06:48 Lasix PO 40 mg DAILY-AC RICHA Administration Insulin Glargine 10 units/ 0.1 mls @ 0.1 mls/hr 05/29/20 21:00 06/03/20 08:34 Miscellaneous Medication SC 0.1 mls BID RICHA Administration Insulin Human Regular 0 units 05/26/20 09:38 06/03/20 10:29 Humulin R SC 2 units .MODERATE SLIDING SC PRN Administration Moderate Correctional Scale Miscellaneous Medication 10 mg 05/27/20 09:00 06/03/20 08:33 Jardiance PO 10 mg DAILY RICHA Administration Nystatin 0 gm 05/27/20 15:28 06/01/20 11:23 Mycostatin Powder TOP 1 applic BIDPRN PRN Administration Topical Irritations Ondansetron HCl 4 mg 05/26/20 09:37 05/30/20 10:10 Zofran IVP 4 mg Q6H PRN Administration Nausea/Vomiting Oxymetazoline HCl 15 ml 05/30/20 09:29 05/30/20 10:00 Afrin Nasal Mist NS 15 ml TID PRN Administration Bleeding Senna/Docusate Sodium 2 tab 05/26/20 09:37 05/27/20 14:49 Senokot S PO 2 tab BIDPRN PRN Administration Constipation - Exam General Appearance: NAD Eye: PERRL, anicteric sclera Heart: RRR, no murmur, no gallops, no rubs, normal peripheral pulses Respiratory: CTAB (occasional wheeze,), no rales, no ronchi Gastrointestinal: soft, non-tender, non-distended, normal bowel sounds, no palpable masses, no hepatomegaly Extremities: no cyanosis, no edema Hosp A/P (1) Acute kidney injury superimposed on CKD Code(s): N17.9 - ACUTE KIDNEY FAILURE, UNSPECIFIED; N18.9 - CHRONIC KIDNEY DISEASE, UNSPECIFIED Status: Acute (2) Acute on chronic diastolic (congestive) heart failure Code(s): I50.33 - ACUTE ON CHRONIC DIASTOLIC (CONGESTIVE) HEART FAILURE Status: Acute (3) Acute respiratory failure with hypoxia Code(s): J96.01 - ACUTE RESPIRATORY FAILURE WITH HYPOXIA Status: Acute (4) Diabetes mellitus type II, uncontrolled Code(s): E11.65 - TYPE 2 DIABETES MELLITUS WITH HYPERGLYCEMIA Status: Chronic (5) Physical deconditioning Code(s): R53.81 - OTHER MALAISE Status: Chronic (6) Atrial fibrillation Code(s): I48.91 - UNSPECIFIED ATRIAL FIBRILLATION Status: Chronic (7) Chronic anticoagulation Code(s): Z79.01 - RESIDENTIAL (CURRENT) USE OF ANTICOAGULANTS Status: Chronic (8) Hypothyroidism Code(s): E03.9 - HYPOTHYROIDISM, UNSPECIFIED Status: Chronic - Plan * Acute respiratory failure with hypoxemia- improving * Pneumonia- she has been transition to Omnicef * CHF- compensated * Hypothyroidism- clinically stable- will re-start her home medications * DM- blood glucose is stable * Acute on chronic kidney disease- stable- will re-check her renal function in the AM
[2020-06-03] MEDS: Amiodarone 450 MG in Dextrose 5% in Water 250 ML IVPB SCH (16:53)
[2020-06-03] MEDS: Atorvastatin Calcium 40 MG TAB PO SCH (20:50)
[2020-06-03] MEDS: HYDROcodone/Acetaminophen 5/325 mg Tablet PO PRN (20:51)
[2020-06-04] MEDS: HYDROcodone/Acetaminophen 5/325 mg Tablet PO PRN ×2 (02:30→21:34)
[2020-06-04] MEDS: Amiodarone 450 MG in Dextrose 5% in Water 250 ML IVPB SCH ×2 (02:31→16:34)
[2020-06-04] MEDS: Furosemide 40 MG TAB PO SCH (06:42)
[2020-06-04] MEDS: Levothyroxine 150 MCG TAB PO SCH (06:42)
[2020-06-04] MEDS: Carvedilol 6.25 MG TAB PO SCH ×2 (08:49→21:33)
[2020-06-04] MEDS: Famotidine 20 MG TAB PO SCH ×2 (08:49→21:34)
[2020-06-04] MEDS: Apixaban 5 MG TAB PO SCH ×2 (08:49→21:33)
[2020-06-04] MEDS: Acetaminophen 325 MG TAB PO PRN (08:49)
[2020-06-04] MEDS: Amiodarone 200 MG TAB PO SCH (08:49)
[2020-06-04] MEDS: Cefdinir 300 MG CAP PO SCH ×2 (08:49→21:34)
[2020-06-04] MEDS: Senokot S 8.6-50 MG TAB PO PRN (08:49)
[2020-06-04] MEDS: Empagliflozin 10 MG TAB PO SCH (08:50)
[2020-06-04] MEDS: Insulin Glargine 10 UNITS in Pre-Filled Syringe 1 EACH SC SCH ×2 (08:51→21:34)
[2020-06-04 10:31] LABS: #Eosinphils 0.2 thou/uL (0.0-0.7); #Lymphocytes 1.4 thou/uL (1.20-3.40); #Monocytes 0.8 thou/uL (0.11-0.59); #Neutrophils 6.8 thou/uL (1.40-6.50); %Basophils 0.3 % (0.0-1.0); %Eosinophils 2.3 % (0.0-10.0); %Lymphocytes 15.1 % (21.0-51.0); %Monocytes 9.1 % (0.0-10.0); %Neutrophils 73.2 % (42.0-75.0); Hemoglobin 9.5 g/dL (12.0-16.0); Mean Platelet Volume 7.8 fL (7.4-10.4); Platelet Count 191 thou/uL (130-400); Red Blood Cell (RBC) Count 3.26 mill/uL (4.20-5.40); White Blood Cell (WBC) Count 9.2 thou/uL (4.8-10.8)
[2020-06-04 10:48] LABS: Anion Gap 12 mmol/L (10-20); BUN (Urea Nitrogen) 27 mg/dL (9.8-20.1); Calc. Creatinine Clearance 63 mL/min (70-130); Calcium 8.7 mg/dL (7.8-10.44); Carbon Dioxide 32 mmol/L (23-31); Chloride 97 mmol/L (98-107); Estimated GFR-MDRD 25; Glucose 196 mg/dL (83-110); Potassium 3.5 mmol/L (3.5-5.1); Sodium 137 mmol/L (136-145)
[2020-06-04] MEDS: Insulin Regular 300 UNITS/3 ML VIAL SC PRN ×2 (10:51→16:41)
--- NOTE | 2020-06-04 18:16 | PDOC.HOSPP ---
- Subjective Encounter Date: 06/04/20 Encounter Time: 18:14 Subjective: Ms. Morgan was seen today in follow-up of respiratory failure. She does not have any complaints. She says she is breathing better. - Objective Vital Signs & Weight: Vital Signs (12 hours) Temp Pulse Resp BP Pulse Ox 06/04/20 15:11 97.0 F L 06/04/20 13:19 68 20 97 06/04/20 11:15 96.6 F L 06/04/20 08:49 103/61 06/04/20 07:48 98 06/04/20 07:05 97.2 F L 06/04/20 06:52 60 19 97 Weight Admit Weight 327 lb Weight 330 lb 8 oz Most Recent Monitor Data Heart Rate from ECG 60 NIBP 127/64 NIBP BP-Mean 85 Respiration from ECG 17 SpO2 95 I&O: 06/03/20 06/04/20 06/05/20 06:59 06:59 06:59 Intake Total 500 640 680 Output Total 1850 1000 600 Balance -1350 -360 80 Result Diagrams: 06/04/20 10:07 06/04/20 10:07 Additional Labs: Accuchecks 06/04/20 06/04/20 06/04/20 16:43 10:40 05:47 POC Glucose 188 H 185 H 154 H 06/03/20 20:34 POC Glucose 176 H Hospitalist ROS - Medication Medications: Active Medications Generic Name Dose Route Start Last Admin Trade Name Freq PRN Reason Stop Dose Admin Acetaminophen 650 mg 05/26/20 09:37 06/04/20 08:49 Tylenol PO 650 mg Q4H PRN Administration Headache/Fever/Mild Pain (1-3) Hydrocodone Bitart/Acetaminophen 1 tab 05/26/20 09:37 06/04/20 02:30 [place] 5/325 PO 1 tab Q4H PRN Administration Moderate Pain (4-6) Albuterol/Ipratropium 3 ml 05/26/20 13:00 06/04/20 13:19 Duoneb NEB 3 ml [id number] RICHA Administration Amiodarone HCl 200 mg 05/27/20 09:00 06/04/20 08:49 Cordarone PO 200 mg DAILY RICHA Administration Apixaban 5 mg 06/03/20 21:00 06/04/20 08:49 Eliquis PO 5 mg BID RICHA Administration Atorvastatin Calcium 80 mg 05/26/20 21:00 06/03/20 20:50 Lipitor PO 80 mg HS RICHA Administration Carvedilol 6.25 mg 05/30/20 21:00 06/04/20 08:49 Coreg PO 6.25 mg BID RICHA Administration Cefdinir 300 mg 05/30/20 21:00 06/04/20 08:49 Omnicef PO 300 mg BID RICHA Administration Famotidine 20 mg 05/26/20 21:00 06/04/20 08:49 Pepcid PO 20 mg BID RICHA Administration Furosemide 40 mg 05/28/20 07:30 06/04/20 06:42 Lasix PO 40 mg DAILY-AC RICHA Administration Insulin Glargine 10 units/ 0.1 mls @ 0.1 mls/hr 05/29/20 21:00 06/04/20 08:51 Miscellaneous Medication SC 0.1 mls BID RICHA Administration Amiodarone HCl 450 mg/ 259 mls @ 0 mls/hr 06/03/20 16:00 06/04/20 16:34 Dextrose/Water IVPB 259 mls INF RICHA Administration Protocol Per Protocol Insulin Human Regular 0 units 05/26/20 09:38 06/04/20 16:41 Humulin R SC 2 units .MODERATE SLIDING SC PRN Administration Moderate Correctional Scale Levothyroxine Sodium 150 mcg 06/04/20 06:00 06/04/20 06:42 Synthroid PO 150 mcg 0600 RICHA Administration Nystatin 0 gm 05/27/20 15:28 06/01/20 11:23 Mycostatin Powder TOP 1 applic BIDPRN PRN Administration Topical Irritations Ondansetron HCl 4 mg 05/26/20 09:37 05/30/20 10:10 Zofran IVP 4 mg Q6H PRN Administration Nausea/Vomiting Oxymetazoline HCl 15 ml 05/30/20 09:29 05/30/20 10:00 Afrin Nasal Mist NS 15 ml TID PRN Administration Bleeding - Exam Eye: PERRL, anicteric sclera Heart: RRR, no murmur, no gallops, no rubs, normal peripheral pulses Respiratory: CTAB, no wheezes, no rales, no ronchi, normal chest expansion, no tachypnea Gastrointestinal: soft, non-tender, non-distended, normal bowel sounds, no palpable masses Extremities: no cyanosis, 2+ LE edema Hosp A/P (1) Acute kidney injury superimposed on CKD Code(s): N17.9 - ACUTE KIDNEY FAILURE, UNSPECIFIED; N18.9 - CHRONIC KIDNEY DISEASE, UNSPECIFIED Status: Acute (2) Acute on chronic diastolic (congestive) heart failure Code(s): I50.33 - ACUTE ON CHRONIC DIASTOLIC (CONGESTIVE) HEART FAILURE Status : Acute (3) Acute respiratory failure with hypoxia Code(s): J96.01 - ACUTE RESPIRATORY FAILURE WITH HYPOXIA Status: Acute (4) Diabetes mellitus type II, uncontrolled Code(s): E11.65 - TYPE 2 DIABETES MELLITUS WITH HYPERGLYCEMIA Status: Chronic (5) Physical deconditioning Code(s): R53.81 - OTHER MALAISE Status: Chronic (6) Atrial fibrillation Code(s): I48.91 - UNSPECIFIED ATRIAL FIBRILLATION Status: Chronic (7) Chronic anticoagulation Code(s): Z79.01 - ASSISTED (CURRENT) USE OF ANTICOAGULANTS Status: Chronic (8) Hypothyroidism Code(s): E03.9 - HYPOTHYROIDISM, UNSPECIFIED Status: Chronic (9) Acute kidney injury Code(s): N17.9 - ACUTE KIDNEY FAILURE, UNSPECIFIED Status: Acute - Plan * Acute respiratory failure with hypoxemia- improving * Pneumonia- continue Omnicef. Wean supplemental oxygen as tolerated * CHF- compensated * Hypothyroidism- Continue Levothyroxine * DM- blood glucose is stable * Acute on chronic kidney disease- her creatinine has increased some overnight- will hold the lasix, and re-check in the AM * AFIB-her heart rate is stable- * Wide complex tachycardia- as per Cardiology- she was placed on an Amiodarone drip yesterday
[2020-06-04] MEDS: Atorvastatin Calcium 40 MG TAB PO SCH (21:33)
[2020-06-04] MEDS: Senokot S 8.6-50 MG TAB PO SCH (21:34)
[2020-06-05 04:03] LABS: Anion Gap 12 mmol/L (10-20); BUN (Urea Nitrogen) 25 mg/dL (9.8-20.1); Calc. Creatinine Clearance 66 mL/min (70-130); Calcium 8.3 mg/dL (7.8-10.44); Carbon Dioxide 30 mmol/L (23-31); Chloride 98 mmol/L (98-107); Estimated GFR-MDRD 27; Glucose 131 mg/dL (83-110); Potassium 3.7 mmol/L (3.5-5.1); Sodium 136 mmol/L (136-145)
[2020-06-05] MEDS: Levothyroxine 150 MCG TAB PO SCH (06:15)
[2020-06-05] MEDS: Insulin Regular 300 UNITS/3 ML VIAL SC PRN ×3 (06:15→17:13)
[2020-06-05] MEDS: Amiodarone 450 MG in Dextrose 5% in Water 250 ML IVPB SCH (06:44)
[2020-06-05] MEDS: Amiodarone 200 MG TAB PO SCH (09:14)
[2020-06-05] MEDS: Carvedilol 6.25 MG TAB PO SCH ×2 (09:14→20:42)
[2020-06-05] MEDS: Senokot S 8.6-50 MG TAB PO SCH ×2 (09:15→20:42)
[2020-06-05] MEDS: Cefdinir 300 MG CAP PO SCH ×2 (09:15→20:42)
[2020-06-05] MEDS: Famotidine 20 MG TAB PO SCH ×2 (09:15→20:42)
[2020-06-05] MEDS: Apixaban 5 MG TAB PO SCH ×2 (09:15→20:42)
[2020-06-05] MEDS: Insulin Glargine 10 UNITS in Pre-Filled Syringe 1 EACH SC SCH ×2 (09:16→20:42)
--- NOTE | 2020-06-05 10:20 | PDOC.HOSPP ---
- Subjective Encounter Date: 06/05/20 Encounter Time: 10:19 Subjective: Ms. Morgan was seen today in follow-up of Pneumonia and CHF. She says she is doing better today. No new complaints. - Objective Vital Signs & Weight: Vital Signs (12 hours) Temp Pulse Resp BP Pulse Ox 06/05/20 09:14 111/48 L 06/05/20 07:37 98 06/05/20 07:26 97.2 F L 06/05/20 07:17 60 18 97 06/05/20 07:00 97 06/05/20 03:49 97.2 F L 06/04/20 23:46 97.4 F L 06/04/20 23:28 61 20 94 L Weight Admit Weight 327 lb Weight 330 lb 8 oz Most Recent Monitor Data Heart Rate from ECG 60 NIBP 142/59 NIBP BP-Mean 86 Respiration from ECG 25 SpO2 92 I&O: 06/04/20 06/05/20 06/06/20 06:59 06:59 06:59 Intake Total 1120 1400 Output Total 1650 1700 Balance -530 -300 Result Diagrams: 06/04/20 10:07 06/05/20 03:04 Additional Labs: Accuchecks 06/05/20 06/04/20 06/04/20 05:58 20:32 16:43 POC Glucose 172 H 208 H 188 H 06/04/20 10:40 POC Glucose 185 H Hospitalist ROS - Medication Medications: Active Medications Generic Name Dose Route Start Last Admin Trade Name Freq PRN Reason Stop Dose Admin Acetaminophen 650 mg 05/26/20 09:37 06/04/20 08:49 Tylenol PO 650 mg Q4H PRN Administration Headache/Fever/Mild Pain (1-3) Albuterol/Ipratropium 3 ml 05/26/20 13:00 06/05/20 07:17 Duoneb NEB 3 ml [id number] RICHA Administration Amiodarone HCl 200 mg 05/27/20 09:00 06/05/20 09:14 Cordarone PO 200 mg DAILY RICHA Administration Apixaban 5 mg 06/03/20 21:00 06/05/20 09:15 Eliquis PO 5 mg BID RICHA Administration Atorvastatin Calcium 80 mg 05/26/20 21:00 06/04/20 21:33 Lipitor PO 80 mg HS RICHA Administration Carvedilol 6.25 mg 05/30/20 21:00 06/05/20 09:14 Coreg PO 6.25 mg BID RICHA Administration Cefdinir 300 mg 05/30/20 21:00 06/05/20 09:15 Omnicef PO 300 mg BID RICHA Administration Famotidine 20 mg 05/26/20 21:00 06/05/20 09:15 Pepcid PO 20 mg BID RICHA Administration Insulin Glargine 10 units/ 0.1 mls @ 0.1 mls/hr 05/29/20 21:00 06/05/20 09:16 Miscellaneous Medication SC 0.1 mls BID RICHA Administration Amiodarone HCl 450 mg/ 259 mls @ 0 mls/hr 06/03/20 16:00 06/05/20 06:44 Dextrose/Water IVPB 259 mls INF RICHA Administration Protocol Per Protocol Insulin Human Regular 0 units 05/26/20 09:38 06/05/20 06:15 Humulin R SC 2 units .MODERATE SLIDING SC PRN Administration Moderate Correctional Scale Levothyroxine Sodium 150 mcg 06/04/20 06:00 06/05/20 06:15 Synthroid PO 150 mcg 0600 RICHA Administration Nystatin 0 gm 05/27/20 15:28 06/01/20 11:23 Mycostatin Powder TOP 1 applic BIDPRN PRN Administration Topical Irritations Ondansetron HCl 4 mg 05/26/20 09:37 05/30/20 10:10 Zofran IVP 4 mg Q6H PRN Administration Nausea/Vomiting Oxymetazoline HCl 15 ml 05/30/20 09:29 05/30/20 10:00 Afrin Nasal Mist NS 15 ml TID PRN Administration Bleeding Senna/Docusate Sodium 2 tab 06/04/20 21:00 06/05/20 09:15 Senokot S PO 2 tab BID RICHA Administration - Exam Eye: PERRL, anicteric sclera Heart: RRR, no murmur, no gallops, no rubs, normal peripheral pulses Respiratory: CTAB (+ coarse breath sounds bilaterally, no wheezing or rhonchi) Gastrointestinal: soft, non-distended Extremities: no cyanosis, no clubbing, 1+ LE edema Hosp A/P (1) Acute kidney injury superimposed on CKD Code(s): N17.9 - ACUTE KIDNEY FAILURE, UNSPECIFIED; N18.9 - CHRONIC KIDNEY D ISEASE, UNSPECIFIED Status: Acute (2) Acute on chronic diastolic (congestive) heart failure Code(s): I50.33 - ACUTE ON CHRONIC DIASTOLIC (CONGESTIVE) HEART FAILURE Status: Acute (3) Acute respiratory failure with hypoxia Code(s): J96.01 - ACUTE RESPIRATORY FAILURE WITH HYPOXIA Status: Acute (4) Diabetes mellitus type II, uncontrolled Code(s): E11.65 - TYPE 2 DIABETES MELLITUS WITH HYPERGLYCEMIA Status: Chronic (5) Physical deconditioning Code(s): R53.81 - OTHER MALAISE Status: Chronic (6) Atrial fibrillation Code(s): I48.91 - UNSPECIFIED ATRIAL FIBRILLATION Status: Chronic (7) Chronic anticoagulation Code(s): Z79.01 - MODELING MANAGER (CURRENT) USE OF ANTICOAGULANTS Status: Chronic (8) Hypothyroidism Code(s): E03.9 - HYPOTHYROIDISM, UNSPECIFIED Status: Chronic (9) Acute kidney injury Code(s): N17.9 - ACUTE KIDNEY FAILURE, UNSPECIFIED Status: Acute - Plan * Acute respiratory failure with hypoxemia- improving * Pneumonia- continue Omnicef. Wean supplemental oxygen as tolerated * CHF- compensated * Hypothyroidism- stable * DM- blood glucose is stable * Acute on chronic kidney disease- her creatinine has increased some overnight- will hold the lasix, and re-check in the AM * AFIB-her heart rate is stable- * Wide complex tachycardia- _ will consider discontinuing Amiodarone drip. * Will move her to Telemetry * Major concern now is deconditioning and discharge planning
[2020-06-05] MEDS: Acetaminophen 325 MG TAB PO PRN (20:41)
[2020-06-05] MEDS: Atorvastatin Calcium 40 MG TAB PO SCH (20:42)
[2020-06-06] MEDS: Levothyroxine 150 MCG TAB PO SCH (05:58)
[2020-06-06 09:35] LABS: Anion Gap 13 mmol/L (10-20); BUN (Urea Nitrogen) 21 mg/dL (9.8-20.1); Calc. Creatinine Clearance 70 mL/min (70-130); Calcium 8.6 mg/dL (7.8-10.44); Carbon Dioxide 29 mmol/L (23-31); Chloride 98 mmol/L (98-107); Estimated GFR-MDRD 29; Glucose 187 mg/dL (83-110); Potassium 3.8 mmol/L (3.5-5.1); Sodium 136 mmol/L (136-145)
[2020-06-06] MEDS: Apixaban 5 MG TAB PO SCH ×2 (09:45→21:17)
[2020-06-06] MEDS: Carvedilol 6.25 MG TAB PO SCH ×2 (09:45→21:17)
[2020-06-06] MEDS: Amiodarone 200 MG TAB PO SCH (09:45)
[2020-06-06] MEDS: Cefdinir 300 MG CAP PO SCH ×2 (09:46→21:17)
[2020-06-06] MEDS: Insulin Glargine 10 UNITS in Pre-Filled Syringe 1 EACH SC SCH ×2 (09:46→21:18)
[2020-06-06] MEDS: Famotidine 20 MG TAB PO SCH ×2 (09:46→21:17)
[2020-06-06] MEDS: Senokot S 8.6-50 MG TAB PO SCH ×2 (09:47→21:18)
[2020-06-06] MEDS: Insulin Regular 300 UNITS/3 ML VIAL SC PRN (12:01)
--- NOTE | 2020-06-06 12:07 | PDOC.HOSPP ---
- Subjective Encounter Date: 06/06/20 Encounter Time: 12:05 Subjective: Ms. Morgan was seen today in follow-up of respiratory failure. She says she feels fine. No new complaints. - Objective Vital Signs & Weight: Vital Signs (12 hours) Temp Pulse Pulse Pulse Resp BP BP 06/06/20 11:00 97.0 F L 06/06/20 09:45 112/58 L 06/06/20 08:59 62 60 104/43 L 06/06/20 08:00 06/06/20 07:30 66 15 06/06/20 07:29 97.2 F L 06/06/20 03:31 97.6 F 06/06/20 02:58 60 06/06/20 00:41 60 26 H BP Pulse Ox Pulse Ox Pulse Ox 06/06/20 11:00 06/06/20 09:45 06/06/20 08:59 112/58 L 100 98 06/06/20 08:00 100 06/06/20 07:30 98 06/06/20 07:29 06/06/20 03:31 06/06/20 02:58 97 06/06/20 00:41 98 Weight Admit Weight 359 lb 12.71 oz Weight 330 lb 1.6 oz Most Recent Monitor Data Heart Rate from ECG 60 NIBP 112/53 NIBP BP-Mean 72 Respiration from ECG 19 SpO2 100 I&O: 06/05/20 06/06/20 06/07/20 06:59 06:59 06:59 Intake Total 1400 1250 Output Total 1700 2100 Balance -300 -850 Result Diagrams: 06/04/20 10:07 06/06/20 09:03 Additional Labs: Accuchecks 06/06/20 06/06/20 06/05/20 11:24 06:07 20:46 POC Glucose 188 H 126 H 168 H 06/05/20 06/03/20 16:52 10:30 POC Glucose 164 H 177 H Hospitalist ROS - Medication Medications: Active Medications Generic Name Dose Route Start Last Admin Trade Name Freq PRN Reason Stop Dose Admin Acetaminophen 650 mg 05/26/20 09:37 06/05/20 20:41 Tylenol PO 650 mg Q4H PRN Administration Headache/Fever/Mild Pain (1-3) Albuterol/Ipratropium 3 ml 05/26/20 13:00 06/06/20 07:30 Duoneb NEB 3 ml [id number] RICHA Administration Amiodarone HCl 200 mg 05/27/20 09:00 06/06/20 09:45 Cordarone PO 200 mg DAILY RICHA Administration Apixaban 5 mg 06/03/20 21:00 06/06/20 09:45 Eliquis PO 5 mg BID RICHA Administration Atorvastatin Calcium 80 mg 05/26/20 21:00 06/05/20 20:42 Lipitor PO 80 mg HS RICHA Administration Carvedilol 6.25 mg 05/30/20 21:00 06/06/20 09:45 Coreg PO 6.25 mg BID RICHA Administration Cefdinir 300 mg 05/30/20 21:00 06/06/20 09:46 Omnicef PO 300 mg BID RICHA Administration Famotidine 20 mg 05/26/20 21:00 06/06/20 09:46 Pepcid PO 20 mg BID RICHA Administration Insulin Glargine 10 units/ 0.1 mls @ 0.1 mls/hr 05/29/20 21:00 06/06/20 09:46 Miscellaneous Medication SC 0.1 mls BID RICHA Administration Insulin Human Regular 0 units 05/26/20 09:38 06/05/20 17:13 Humulin R SC 2 units .MODERATE SLIDING SC PRN Administration Moderate Correctional Scale Levothyroxine Sodium 150 mcg 06/04/20 06:00 06/06/20 05:58 Synthroid PO 150 mcg 0600 RICHA Administration Nystatin 0 gm 05/27/20 15:28 06/01/20 11:23 Mycostatin Powder TOP 1 applic BIDPRN PRN Administration Topical Irritations Ondansetron HCl 4 mg 05/26/20 09:37 05/30/20 10:10 Zofran IVP 4 mg Q6H PRN Administration Nausea/Vomiting Oxymetazoline HCl 15 ml 05/30/20 09:29 05/30/20 10:00 Afrin Nasal Mist NS 15 ml TID PRN Administration Bleeding Senna/Docusate Sodium 2 tab 06/04/20 21:00 06/06/20 09:47 Senokot S PO 2 tab BID RICHA Administration - Exam Eye: PERRL Heart: RRR, no murmur, no gallops, no rubs, normal peripheral pulses Respiratory: CTAB, rales (+ rales at the bases, and decreased breath sounds at the bases) Gastrointestinal: soft, non-tender, non-distended, normal bowel sounds, no palpable masses, no hepatomegaly Extremities: 2+ LE edema Hosp A/P (1) Acute kidney injury superimposed on CKD Code(s): N17.9 - ACUTE KIDNEY FAILURE, UNSPECIFIED; N18.9 - CHRONIC KIDNEY DISEASE, UNSPECIFIED Status: Acute (2) Acute on chronic diastolic (congestive) heart failure Code(s): I50.33 - ACUTE ON CHRONIC DIASTOLIC (CONGESTIVE) HEART FAILURE Status: Acute (3) Acute respiratory failure with hypoxia Code(s): J96.01 - ACUTE RESPIRATORY FAILURE WITH HYPOXIA Status: Acute (4) Diabetes mellitus type II, uncontrolled Code(s): E11.65 - TYPE 2 DIABETES MELLITUS WITH HYPERGLYCEMIA Status: Chronic (5) Physical deconditioning Code(s): R53.81 - OTHER MALAISE Status: Chronic (6) Atrial fibrillation Code(s): I48.91 - UNSPECIFIED ATRIAL FIBRILLATION Status: Chronic (7) Chronic anticoagulation Code(s): Z79.01 - ENGINEERING SPECIALIST TECHNICIAN (CURRENT) USE OF ANTICOAGULANTS Status: Chronic (8) Hypothyroidism Code(s): E03.9 - HYPOTHYROIDISM, UNSPECIFIED Status: Chronic (9) Acute kidney injury Code(s): N17.9 - ACUTE KIDNEY FAILURE, UNSPECIFIED Status: Acute - Plan * Acute respiratory failure with hypoxemia- improving * Pneumonia- continue Omnicef. Wean supplemental oxygen as tolerated * CHF- compensated- will re-start Lasix at [facility]- and monitor her renal function * Hypothyroidism- stable * DM- blood glucose is stable * Acute on chronic kidney disease- her creatinine has increased some overnight- will hold the lasix, and re-check in the AM * AFIB-her heart rate is stable * Will move her to Telemetry * I discussed longterm and Rehab again with the patient as well as her daughter. The patient now is re-thinking going to Rehab
[2020-06-06] MEDS: Atorvastatin Calcium 40 MG TAB PO SCH (21:17)
[2020-06-07 05:58] LABS: Anion Gap 12 mmol/L (10-20); BUN (Urea Nitrogen) 19 mg/dL (9.8-20.1); Calc. Creatinine Clearance 79 mL/min (70-130); Calcium 8.4 mg/dL (7.8-10.44); Carbon Dioxide 30 mmol/L (23-31); Chloride 100 mmol/L (98-107); Estimated GFR-MDRD 33; Glucose 133 mg/dL (83-110); Potassium 3.6 mmol/L (3.5-5.1); Sodium 138 mmol/L (136-145)
[2020-06-07] MEDS ORDERED: Famotidine 20 MG TAB ONE (09:15)
[2020-06-07] MEDS: Amiodarone 200 MG TAB PO SCH ×2 (09:15→09:52)
[2020-06-07] MEDS ORDERED: Cefdinir 300 MG CAP ONE (09:15)
[2020-06-07] MEDS ORDERED: Levothyroxine 150 MCG TAB ONE (09:15)
[2020-06-07] MEDS: Famotidine 20 MG TAB PO SCH ×3 (09:15→21:34)
[2020-06-07] MEDS ORDERED: Amiodarone 200 MG TAB ONE (09:15)
[2020-06-07] MEDS: Senokot S 8.6-50 MG TAB PO SCH ×3 (09:15→21:33)
[2020-06-07] MEDS: Apixaban 5 MG TAB PO SCH ×3 (09:15→21:35)
[2020-06-07] MEDS ORDERED: Furosemide 40 MG TAB ONE (09:15)
[2020-06-07] MEDS ORDERED: Carvedilol 6.25 MG TAB ONE (09:15)
[2020-06-07] MEDS ORDERED: Apixaban 5 MG TAB ONE (09:15)
[2020-06-07] MEDS: Furosemide 40 MG TAB PO SCH ×2 (09:16→09:54)
[2020-06-07] MEDS: Cefdinir 300 MG CAP PO SCH ×3 (09:16→21:35)
[2020-06-07] MEDS: Carvedilol 6.25 MG TAB PO SCH ×3 (09:16→21:34)
[2020-06-07] MEDS: Insulin Glargine 10 UNITS in Pre-Filled Syringe 1 EACH SC SCH ×2 (09:28→21:36)
[2020-06-07] MEDS: Levothyroxine 150 MCG TAB PO SCH ×2 (09:51→10:43)
[2020-06-07] MEDS: Insulin Regular 300 UNITS/3 ML VIAL SC PRN (11:23)
--- NOTE | 2020-06-07 15:15 | PDOC.HOSPP ---
- Subjective Encounter Date: 06/07/20 Encounter Time: 15:13 Subjective: Ms. Morgan was seen today in follow-up of respiratory failure due to CHF and pneumonia. She says she is breathing ok. She walked twice with PT, and is happy with the distance that she covered. - Objective Vital Signs & Weight: Vital Signs (12 hours) Temp Pulse Pulse Pulse Resp BP BP 06/07/20 12:07 98.4 F 83 14 06/07/20 09:40 60 60 181/79 H 150/62 H BP Pulse Ox Pulse Ox Pulse Ox 06/07/20 12:07 118/61 95 06/07/20 09:40 90 L 95 Weight Admit Weight 359 lb 12.71 oz Weight 330 lb 1.6 oz Most Recent Monitor Data Heart Rate from ECG 60 NIBP 118/51 NIBP BP-Mean 73 Respiration from ECG 10 SpO2 100 I&O: 06/06/20 06/07/20 06/08/20 06:59 06:59 06:59 Intake Total 1250 240 Output Total 2100 Balance -850 240 Result Diagrams: 06/04/20 10:07 06/07/20 03:30 Additional Labs: Accuchecks 06/07/20 06/07/20 06/06/20 10:46 06:01 22:19 POC Glucose 157 H 123 H 179 H Hospitalist ROS - Medication Medications: Active Medications Generic Name Dose Route Start Last Admin Trade Name Freq PRN Reason Stop Dose Admin Acetaminophen 650 mg 05/26/20 09:37 06/05/20 20:41 Tylenol PO 650 mg Q4H PRN Administration Headache/Fever/Mild Pain (1-3) Amiodarone HCl 200 mg 05/27/20 09:00 06/07/20 09:15 Cordarone PO 200 mg DAILY RICHA Administration Apixaban 5 mg 06/03/20 21:00 06/07/20 09:15 Eliquis PO 5 mg BID RICHA Administration Atorvastatin Calcium 80 mg 05/26/20 21:00 06/06/20 21:17 Lipitor PO 80 mg HS RICHA Administration Carvedilol 6.25 mg 05/30/20 21:00 06/07/20 09:16 Coreg PO 6.25 mg BID RICHA Administration Cefdinir 300 mg 05/30/20 21:00 06/07/20 09:16 Omnicef PO 300 mg BID RICHA Administration Famotidine 20 mg 05/26/20 21:00 06/07/20 09:15 Pepcid PO 20 mg BID RICHA Administration Furosemide 40 mg 06/07/20 09:00 06/07/20 09:16 Lasix PO 40 mg MWF RICHA Administration Insulin Glargine 10 units/ 0.1 mls @ 0.1 mls/hr 05/29/20 21:00 06/07/20 09:28 Miscellaneous Medication SC 0.1 mls BID RICHA Administration Insulin Human Regular 0 units 05/26/20 09:38 06/07/20 11:23 Humulin R SC 2 units .MODERATE SLIDING SC PRN Administration Moderate Correctional Scale Levothyroxine Sodium 150 mcg 06/04/20 06:00 06/07/20 10:43 Synthroid PO Not Given 0600 COUNTS INCLUDE 234 BEDS AT [facility] Nystatin 0 gm 05/27/20 15:28 06/01/20 11:23 Mycostatin Powder TOP 1 applic BIDPRN PRN Administration Topical Irritations Ondansetron HCl 4 mg 05/26/20 09:37 05/30/20 10:10 Zofran IVP 4 mg Q6H PRN Administration Nausea/Vomiting Oxymetazoline HCl 15 ml 05/30/20 09:29 05/30/20 10:00 Afrin Nasal Mist NS 15 ml TID PRN Administration Bleeding Senna/Docusate Sodium 2 tab 06/04/20 21:00 06/07/20 09:15 Senokot S PO Not Given BID COUNTS INCLUDE 234 BEDS AT [facility] - Exam Eye: PERRL, anicteric sclera Heart: RRR Respiratory: CTAB (with the exception of rales at the bases, and occasional wheeze) Gastrointestinal: soft, non-tender, non-distended, normal bowel sounds, no palpable masses Extremities: no cyanosis, 1+ LE edema Hosp A/P (1) Acute kidney injury superimposed on CKD Code(s): N17.9 - ACUTE KIDNEY FAILURE, UNSPECIFIED; N18.9 - CHRONIC KIDNEY DISEASE, UNSPECIFIED Status: Acute (2) Acute on chronic diastolic (congestive) heart failure Code(s): I50.33 - ACUTE ON CHRONIC DIASTOLIC (CONGESTIVE) HEART FAILURE Status: Acute (3) Acute respiratory failure with hypoxia Code(s): J96.01 - ACUTE RESPIRATORY FAILURE WITH HYPOXIA Status: Acute (4) Diabetes mellitus type II, uncontrolled Code(s): E11.65 - TYPE 2 DIABETES MELLITUS WITH HYPERGLYCEMIA Status: Chronic (5) Physical deconditioning Code(s): R53.81 - OTHER MALAISE Status: Chronic (6) Atrial fibrillation Code(s): I48.91 - UNSPECIFIED ATRIAL FIBRILLATION Status: Chronic (7) Chronic anticoagulation Code(s): Z79.01 - 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 Wean supplemental oxygen as tolerated * CHF- compensated- continue Lasix MWF and monitor renal function and daily weight, and subjective respiratory status closely * Hypothyroidism- stable * DM- blood glucose is stable * Acute on chronic kidney disease- renal function has improved * AFIB-her heart rate is stable * She has decided to go to senior living. She would like to go to the facility in [place].
[2020-06-07] MEDS: Nystatin Cream 30 GM TUBE TOP SCH (21:33)
[2020-06-07] MEDS: Atorvastatin Calcium 40 MG TAB PO SCH (21:34)
[2020-06-08 04:29] LABS: #Eosinphils 0.1 thou/uL (0.0-0.7); #Lymphocytes 1.4 thou/uL (1.20-3.40); #Monocytes 0.8 thou/uL (0.11-0.59); #Neutrophils 4.4 thou/uL (1.40-6.50); %Basophils 0.3 % (0.0-1.0); %Eosinophils 1.9 % (0.0-10.0); %Lymphocytes 20.6 % (21.0-51.0); %Monocytes 11.1 % (0.0-10.0); %Neutrophils 66.1 % (42.0-75.0); Hemoglobin 8.9 g/dL (12.0-16.0); Mean Corpuscular Hemoglobin 29.5 pg (27.0-31.0); Mean Corpuscular Volume 89.5 fL (78.0-98.0); Mean Platelet Volume 7.2 fL (7.4-10.4); Platelet Count 174 thou/uL (130-400); RBC Distribution Width 16.3 % (11.5-14.5); Red Blood Cell (RBC) Count 3.01 mill/uL (4.20-5.40); White Blood Cell (WBC) Count 6.7 thou/uL (4.8-10.8)
[2020-06-08 04:56] LABS: Anion Gap 10 mmol/L (10-20); BUN (Urea Nitrogen) 18 mg/dL (9.8-20.1); Calc. Creatinine Clearance 84 mL/min (70-130); Calcium 8.4 mg/dL (7.8-10.44); Carbon Dioxide 32 mmol/L (23-31); Chloride 101 mmol/L (98-107); Estimated GFR-MDRD 35; Glucose 106 mg/dL (83-110); Potassium 3.5 mmol/L (3.5-5.1); Sodium 139 mmol/L (136-145)
[2020-06-08] MEDS: Levothyroxine 150 MCG TAB PO SCH (05:19)
[2020-06-08] MEDS: Amiodarone 200 MG TAB PO SCH (09:10)
[2020-06-08] MEDS: Senokot S 8.6-50 MG TAB PO SCH ×2 (09:11→20:56)
[2020-06-08] MEDS: Apixaban 5 MG TAB PO SCH ×2 (09:11→20:57)
[2020-06-08] MEDS: Cefdinir 300 MG CAP PO SCH ×2 (09:12→20:57)
[2020-06-08] MEDS: Famotidine 20 MG TAB PO SCH ×2 (09:12→20:57)
[2020-06-08] MEDS: Carvedilol 6.25 MG TAB PO SCH ×2 (09:14→20:57)
[2020-06-08] MEDS: Insulin Glargine 10 UNITS in Pre-Filled Syringe 1 EACH SC SCH ×2 (09:15→20:58)
[2020-06-08] MEDS ORDERED: Nystatin Cream 15 GM TUBE TOP SCH (09:45)
[2020-06-08] MEDS: Nystatin Cream 30 GM TUBE TOP SCH (13:13)
[2020-06-08 14:18] VITALS: BMI 53.4
[2020-06-08] MEDS: Atorvastatin Calcium 40 MG TAB PO SCH (20:57)
[2020-06-08] MEDS: Nystatin Cream 15 GM TUBE TOP SCH (20:58)
--- NOTE | 2020-06-08 21:39 | PDOC.HOSPP ---
- Subjective Encounter Date: 06/08/20 Encounter Time: 10:00 Subjective: no overnight events. this morning, sitting in chair comfortably nad has no complaints. - Objective Vital Signs & Weight: Vital Signs (12 hours) Temp Pulse Resp BP BP Pulse Ox 06/08/20 20:57 130/59 L 06/08/20 20:54 98.1 F 60 20 130/59 L 96 06/08/20 15:10 97.8 F 60 16 112/54 L 96 06/08/20 11:36 98.5 F 60 16 121/56 L 96 Weight Admit Weight 359 lb 12.71 oz Weight 331 lb 6.4 oz Most Recent Monitor Data Heart Rate from ECG 60 NIBP 118/51 NIBP BP-Mean 73 Respiration from ECG 10 SpO2 100 I&O: 06/07/20 06/08/20 06/09/20 06:59 06:59 06:59 Intake Total 240 990 720 Output Total 1850 150 Balance 240 -860 570 Result Diagrams: 06/08/20 04:05 06/08/20 04:05 Additional Labs: Accuchecks 06/08/20 06/08/20 20:52 05:44 POC Glucose 139 H 106 H Hospitalist ROS - Review of Systems Constitutional: denies: chills, sweats Respiratory: denies: cough, shortness of breath Cardiovascular: denies: chest pain, palpitations Gastrointestinal: denies: nausea, vomiting, abdominal pain - Medication Medications: Active Medications Generic Name Dose Route Start Last Admin Trade Name Freq PRN Reason Stop Dose Admin Acetaminophen 650 mg 05/26/20 09:37 06/05/20 20:41 Tylenol PO 650 mg Q4H PRN Administration Headache/Fever/Mild Pain (1-3) Amiodarone HCl 200 mg 05/27/20 09:00 06/08/20 09:10 Cordarone PO 200 mg DAILY RICHA Administration Apixaban 5 mg 06/03/20 21:00 06/08/20 20:57 Eliquis PO 5 mg BID RICHA Administration Atorvastatin Calcium 80 mg 05/26/20 21:00 06/08/20 20:57 Lipitor PO 80 mg HS RICHA Administration Carvedilol 6.25 mg 05/30/20 21:00 06/08/20 20:57 Coreg PO 6.25 mg BID RICHA Administration Cefdinir 300 mg 05/30/20 21:00 06/08/20 20:57 Omnicef PO 300 mg BID RICHA Administration Famotidine 20 mg 05/26/20 21:00 06/08/20 20:57 Pepcid PO 20 mg BID RICHA Administration Furosemide 40 mg 06/07/20 09:00 06/07/20 09:16 Lasix PO 40 mg MWF RICHA Administration Insulin Glargine 10 units/ 0.1 mls @ 0.1 mls/hr 05/29/20 21:00 06/08/20 20:58 Miscellaneous Medication SC 0.1 mls BID RICHA Administration Insulin Human Regular 0 units 05/26/20 09:38 06/07/20 11:23 Humulin R SC 2 units .MODERATE SLIDING SC PRN Administration Moderate Correctional Scale Levothyroxine Sodium 150 mcg 06/04/20 06:00 06/08/20 05:19 Synthroid PO 150 mcg 0600 RICHA Administration Nystatin 0 gm 05/27/20 15:28 06/01/20 11:23 Mycostatin Powder TOP 1 applic BIDPRN PRN Administration Topical Irritations Nystatin 1 gm 06/08/20 21:00 06/08/20 20:58 Nystatin Cream 15 Gm Tube TOP 1 gm BID RICHA Administration Ondansetron HCl 4 mg 05/26/20 09:37 05/30/20 10:10 Zofran IVP 4 mg Q6H PRN Administration Nausea/Vomiting Oxymetazoline HCl 15 ml 05/30/20 09:29 05/30/20 10:00 Afrin Nasal Mist NS 15 ml TID PRN Administration Bleeding Senna/Docusate Sodium 2 tab 06/04/20 21:00 06/08/20 20:56 Senokot S PO Not Given BID [facility] - Exam General Appearance: NAD, awake alert Eye: PERRL, anicteric sclera Neck: no JVD Heart: RRR, no gallops, no rubs Respiratory: CTAB, no wheezes, no ronchi Respiratory - other findings: bibasilar inspiratory rales Gastrointestinal: soft, non-tender, non-distended Extremities: 1+ LE edema Psychiatric: normal affect, normal behavior, A&O x 3 Hosp A/P - Plan (1) Acute kidney injury superimposed on CKD Code(s): N17.9 - ACUTE KIDNEY FAILURE, UNSPECIFIED; N18.9 - CHRONIC KIDNEY DISEASE, UNSPECIFIED Status: Acute (2) Acute on chronic diastolic (congestive) heart failure Code(s): I50.33 - ACUTE ON CHRONIC DIASTOLIC (CONGESTIVE) HEART FAILURE Status: Acute (3) Acute respiratory failure with hypoxia Code(s): J96.01 - ACUTE RESPIRATORY FAILURE WITH HYPOXIA Status: Acute (4) Diabetes mellitus type II, uncontrolled Code(s): E11.65 - TYPE 2 DIABETES MELLITUS WITH HYPERGLYCEMIA Status: Chronic (5) Physical deconditioning Code(s): R53.81 - OTHER MALAISE Status: Chronic (6) Atrial fibrillation Code(s): I48.91 - UNSPECIFIED ATRIAL FIBRILLATION Status: Chronic (7) Chronic anticoagulation Code(s): Z79.01 - ASSISTED (CURRENT) USE OF ANTICOAGULANTS Status: Chronic (8) Hypothyroidism Code(s): E03.9 - HYPOTHYROIDISM, UNSPECIFIED Status: Chronic (9) Acute kidney injury Code(s): N17.9 - ACUTE KIDNEY FAILURE, UNSPECIFIED Status: Acute - Plan * Acute respiratory failure with hypoxemia- improving * Pneumonia- Cefdinir as per pulm. Wean supplemental oxygen as tolerated * CHF- compensated- continue Lasix MWF and monitor renal function and daily weight, and subjective respiratory status closely * Hypothyroidism- stable * DM- at goal * Acute on chronic kidney disease- improving * AFIB-currently sinus * She has decided to go to [facility]. She would like to go to the facility in [place] * KATELYNN - continue Bipap qHS * * ELOS: 1 night
[2020-06-09 05:14] LABS: Anion Gap 13 mmol/L (10-20); BUN (Urea Nitrogen) 20 mg/dL (9.8-20.1); Calc. Creatinine Clearance 75 mL/min (70-130); Calcium 8.5 mg/dL (7.8-10.44); Carbon Dioxide 32 mmol/L (23-31); Chloride 100 mmol/L (98-107); Estimated GFR-MDRD 31; Glucose 120 mg/dL (83-110); Potassium 3.7 mmol/L (3.5-5.1); Sodium 141 mmol/L (136-145)
[2020-06-09] MEDS: Levothyroxine 150 MCG TAB PO SCH (06:03)
[2020-06-09] MEDS: Senokot S 8.6-50 MG TAB PO SCH ×2 (08:58→21:03)
[2020-06-09] MEDS: Cefdinir 300 MG CAP PO SCH (08:59)
[2020-06-09] MEDS: Furosemide 40 MG TAB PO SCH (08:59)
[2020-06-09] MEDS: Amiodarone 200 MG TAB PO SCH (08:59)
[2020-06-09] MEDS: Carvedilol 6.25 MG TAB PO SCH ×2 (08:59→20:59)
[2020-06-09] MEDS: Famotidine 20 MG TAB PO SCH ×2 (08:59→20:59)
[2020-06-09] MEDS: Apixaban 5 MG TAB PO SCH ×2 (08:59→21:00)
[2020-06-09] MEDS: Insulin Glargine 10 UNITS in Pre-Filled Syringe 1 EACH SC SCH ×2 (09:07→21:00)
[2020-06-09] MEDS: Nystatin Cream 15 GM TUBE TOP SCH ×2 (17:10→20:58)
[2020-06-09] MEDS ORDERED: Furosemide 40 MG/4 ML VIAL SLOW IVP SCH (18:15)
--- NOTE | 2020-06-09 20:04 | PDOC.HOSPP ---
- Subjective Encounter Date: 06/09/20 Encounter Time: 08:00 Subjective: no overnight events. this morning, feeling well and has no complaints. Had long coversation with daughter who was concerned about weight gain and "fluid retention." Explained that patient is on lasix every other day, that lung sounds are clear, patient significnat improved clinically, and I/O grossly negative over the past few days. Pending mario trial. Patient accepted and can be discharged tomorrrow assuming no change. - Objective Vital Signs & Weight: Vital Signs (12 hours) Temp Pulse Resp BP Pulse Ox 06/09/20 08:51 98.0 F 60 17 108/53 L 99 Weight Admit Weight 359 lb 12.71 oz Weight 336 lb 1.6 oz Most Recent Monitor Data Heart Rate from ECG 60 NIBP 118/51 NIBP BP-Mean 73 Respiration from ECG 10 SpO2 100 I&O: 06/08/20 06/09/20 06/10/20 06:59 06:59 06:59 Intake Total 990 960 Output Total 1850 400 Balance -860 560 Result Diagrams: 06/08/20 04:05 06/09/20 03:57 Additional Labs: Accuchecks 06/09/20 06/09/20 06/09/20 17:20 05:20 03:01 POC Glucose 137 H 108 H 126 H 06/08/20 20:52 POC Glucose 139 H Hospitalist ROS - Review of Systems Constitutional: denies: chills, sweats Respiratory: denies: cough, shortness of breath Cardiovascular: denies: chest pain, palpitations, orthopnea Gastrointestinal: denies: nausea, vomiting, abdominal pain - Medication Medications: Active Medications Generic Name Dose Route Start Last Admin Trade Name Freq PRN Reason Stop Dose Admin Acetaminophen 650 mg 05/26/20 09:37 06/05/20 20:41 Tylenol PO 650 mg Q4H PRN Administration Headache/Fever/Mild Pain (1-3) Amiodarone HCl 200 mg 05/27/20 09:00 06/09/20 08:59 Cordarone PO 200 mg DAILY RICHA Administration Apixaban 5 mg 06/03/20 21:00 06/09/20 08:59 Eliquis PO 5 mg BID RICHA Administration Atorvastatin Calcium 80 mg 05/26/20 21:00 06/08/20 20:57 Lipitor PO 80 mg HS RICHA Administration Carvedilol 6.25 mg 05/30/20 21:00 06/09/20 08:59 Coreg PO 6.25 mg BID RICHA Administration Cefdinir 300 mg 05/30/20 21:00 06/09/20 08:59 Omnicef PO 300 mg BID RICHA Administration Famotidine 20 mg 05/26/20 21:00 06/09/20 08:59 Pepcid PO 20 mg BID RICHA Administration Furosemide 40 mg 06/07/20 09:00 06/09/20 08:59 Lasix PO 40 mg MWF RICHA Administration Furosemide 40 mg 06/09/20 18:15 06/09/20 18:31 Furosemide 40 Mg/4 Ml Vial SLOW IVP 06/09/20 20:15 40 mg NOW RICHA Administration Insulin Glargine 10 units/ 0.1 mls @ 0.1 mls/hr 05/29/20 21:00 06/09/20 09:07 Miscellaneous Medication SC Not Given BID [facility] Insulin Human Regular 0 units 05/26/20 09:38 06/07/20 11:23 Humulin R SC 2 units .MODERATE SLIDING SC PRN Administration Moderate Correctional Scale Levothyroxine Sodium 150 mcg 06/04/20 06:00 06/09/20 06:03 Synthroid PO 150 mcg 0600 [facility] Administration Nystatin 0 gm 05/27/20 15:28 06/01/20 11:23 Mycostatin Powder TOP 1 applic BIDPRN PRN Administration Topical Irritations Nystatin 1 gm 06/08/20 21:00 06/09/20 17:10 Nystatin Cream 15 Gm Tube TOP Not Given BID [facility] Ondansetron HCl 4 mg 05/26/20 09:37 05/30/20 10:10 Zofran IVP 4 mg Q6H PRN Administration Nausea/Vomiting Oxymetazoline HCl 15 ml 05/30/20 09:29 05/30/20 10:00 Afrin Nasal Mist NS 15 ml TID PRN Administration Bleeding Senna/Docusate Sodium 2 tab 06/04/20 21:00 06/09/20 08:58 Senokot S PO 2 tab BID RICHA Administration - Exam General Appearance: NAD, awake alert Neck: no JVD Heart: RRR, no murmur, no gallops, no rubs Respiratory: CTAB, no wheezes, no rales, no ronchi Gastrointestinal: soft, non-tender, non-distended Extremities: 1+ LE edema Psychiatric: normal affect, normal behavior, A&O x 3 Hosp A/P - Plan (1) Acute kidney injury superimposed on CKD Code(s): N17.9 - ACUTE KIDNEY FAILURE, UNSPECIFIED; N18.9 - CHRONIC KIDNEY DISEASE, UNSPECIFIED Status: Acute (2) Acute on chronic diastolic (congestive) heart failure Code(s): I50.33 - ACUTE ON CHRONIC DIASTOLIC (CONGESTIVE) HEART FAILURE Status: Acute (3) Acute respiratory failure with hypoxia Code(s): J96.01 - ACUTE RESPIRATORY FAILURE WITH HYPOXIA Status: Acute (4) Diabetes mellitus type II, uncontrolled Code(s): E11.65 - TYPE 2 DIABETES MELLITUS WITH HYPERGLYCEMIA Status: Chronic (5) Physical deconditioning Code(s): R53.81 - OTHER MALAISE Status: Chronic (6) Atrial fibrillation Code(s): I48.91 - UNSPECIFIED ATRIAL FIBRILLATION Status: Chronic (7) Chronic anticoagulation Code(s): Z79.01 - USP (CURRENT) USE OF ANTICOAGULANTS Status: Chronic (8) Hypothyroidism Code(s): E03.9 - HYPOTHYROIDISM, UNSPECIFIED Status: Chronic (9) Acute kidney injury Code(s): N17.9 - ACUTE KIDNEY FAILURE, UNSPECIFIED Status: Acute - Plan * Acute respiratory failure with hypoxemia- improving * Pneumonia- completed treatment with Cefdinir * CHF- compensated- continue Lasix MWF and monitor renal function and daily weight, and subjective respiratory status closely * Hypothyroidism- stable * DM- at goal * CKD - at baseline * AFIB-currently sinus * KATELYNN - continue Bipap qHS * She has decided to go to longterm. She would like to go to the facility in [place]. accepted and can be discharged over weekend * * ELOS: 1 night
[2020-06-09] MEDS ORDERED: Sodium Chloride 0.9% 10 ML ONE (20:32)
[2020-06-09] MEDS: Atorvastatin Calcium 40 MG TAB PO SCH (20:59)
[2020-06-10 05:29] LABS: Anion Gap 14 mmol/L (10-20); BUN (Urea Nitrogen) 20 mg/dL (9.8-20.1); Calc. Creatinine Clearance 77 mL/min (70-130); Calcium 8.1 mg/dL (7.8-10.44); Carbon Dioxide 29 mmol/L (23-31); Chloride 101 mmol/L (98-107); Estimated GFR-MDRD 31; Glucose 125 mg/dL (83-110); Potassium 3.6 mmol/L (3.5-5.1); Sodium 140 mmol/L (136-145)
[2020-06-10] MEDS: Levothyroxine 150 MCG TAB PO SCH (05:55)
[2020-06-10] MEDS: Insulin Glargine 10 UNITS in Pre-Filled Syringe 1 EACH SC SCH (08:37)
[2020-06-10] MEDS: Apixaban 5 MG TAB PO SCH (08:41)
[2020-06-10] MEDS: Carvedilol 6.25 MG TAB PO SCH (08:41)
[2020-06-10] MEDS: Famotidine 20 MG TAB PO SCH (08:42)
[2020-06-10] MEDS: Amiodarone 200 MG TAB PO SCH (08:42)
[2020-06-10] MEDS: Senokot S 8.6-50 MG TAB PO SCH (08:42)
[2020-06-10] MEDS ORDERED: Furosemide 40 MG TAB PO SCH (09:00)
[2020-06-10] MEDS: Nystatin Cream 15 GM TUBE TOP SCH (10:43)
[2020-06-10 11:38] VITALS: BP 110/51; TEMP 98
[2020-06-12] MEDS ORDERED: Furosemide 40 MG TAB PO SCH (09:00)
== END 2020-06-10 13:00 | DRG 871 ==
LOC: ERS 03:54 → IMCU/EMU 05:14 → 2NO 06-06 12:55
PROVIDERS: ADMIT Internal Medicine; ATTEND Internal Medicine
PROC: 5A09357 Assistance with Respiratory Ventilation, Less than 24 Consecutive Hours, Continuous Positive Airway Pressure (ICD-10-PCS; principal; 2020-05-26)
PROC: 0T9B70Z Drainage of Bladder with Drainage Device, Via Natural or Artificial Opening (ICD-10-PCS; 2020-05-26)
PROC: 05H633Z Insertion of Infusion Device into Left Subclavian Vein, Percutaneous Approach (ICD-10-PCS; 2020-05-26)
DX: A41.9 Sepsis, unspecified organism (principal); J96.01 Acute respiratory failure with hypoxia; J96.02 Acute respiratory failure with hypercapnia; J18.9 Pneumonia, unspecified organism; I50.33 Acute on chronic diastolic (congestive) heart failure; J15.9 Unspecified bacterial pneumonia; Z68.43 Body mass index [BMI] 50.0-59.9, adult; I42.8 Other cardiomyopathies; N17.9 Acute kidney failure, unspecified; I13.0 Hypertensive heart and chronic kidney disease with heart failure and stage 1 through stage 4 chronic kidney disease, or unspecified chronic kidney disease; Z66 Do not resuscitate; Z20.828 Contact with and (suspected) exposure to other viral communicable diseases; I48.91 Unspecified atrial fibrillation; E03.9 Hypothyroidism, unspecified; E78.5 Hyperlipidemia, unspecified; E66.01 Morbid (severe) obesity due to excess calories; I49.5 Sick sinus syndrome; E11.65 Type 2 diabetes mellitus with hyperglycemia; I08.0 Rheumatic disorders of both mitral and aortic valves; I45.10 Unspecified right bundle-branch block; E78.00 Pure hypercholesterolemia, unspecified; N18.9 Chronic kidney disease, unspecified; G47.33 Obstructive sleep apnea (adult) (pediatric); E11.22 Type 2 diabetes mellitus with diabetic chronic kidney disease; R04.0 Epistaxis; Z79.4 Long term (current) use of insulin; Z78.1 Physical restraint status; Z95.0 Presence of cardiac pacemaker; Z91.018 Allergy to other foods; Z90.49 Acquired absence of other specified parts of digestive tract; Z91.041 Radiographic dye allergy status; Z88.2 Allergy status to sulfonamides; Z88.8 Allergy status to other drugs, medicaments and biological substances; Z79.01 Long term (current) use of anticoagulants; Z79.890 Hormone replacement therapy; Z91.19 Patient's noncompliance with other medical treatment and regimen
CPT/HCPCS: 36415; 36416; 36600; 71045; 80048; 80053; 80202; 82805; 83036; 83605; 83735; 83880; 85014; 85018; 85025; 87040; 93005; 93010; 93306; 94640; 94660; 96365; 97139; J0282; J0692; J1815; J1940; J2405; J3370; J3490; J7050; J7070; J7620; U0002